=== PATIENT | male | born 1990 | race Caucasian/White ===

== ENCOUNTER 2020-05-03 10:35 | Outpatient (REF) | payer MEDICAID, SELFPAY ==
[2020-05-03 11:49] LABS: MANUAL DIFF FLAG NO
[2020-05-03 11:50] LABS: Basophils Percent Auto 0.3 % (0-2); Eosinophils Absolute Auto 0.1 X10*3/uL (0.0-0.4); Eosinophils Percent Auto 1.2 % (0-4); Hemoglobin 16.4 g/dl (14.0-18.0); Imm Gran Abs Auto 0.03 X10*3/uL (0.00-0.03); Imm Gran Pct Auto 0.4 % (0.0-0.4); Lymphocytes Absolute Auto 2.3 X10*3/uL (1.2-4.9); Lymphocytes Percent Auto 31.5 % (20-40); Mean Corpuscular HGB Conc 34.9 g/dl (31.0-36.0); Mean Corpuscular Hemoglobin 29.5 pg (27.0-33.0); Mean Corpuscular Volume 84.5 fL (80-98); Mean Platelet Volume 9.6 fL (9.4-12.4); Monocytes Absolute Auto 0.6 X10*3/uL (0.1-1.2); Monocytes Percent Auto 8.5 % (2-11); Neutrophils Absolute Auto 4.2 X10*3/uL (2.0-8.3); Neutrophils Percent Auto 58.1 % (45-73); Platelet Count 224 X10*3/uL (160-400); Red Blood Count 5.56 X10*6/uL (4.60-5.80); Red Cell Distribution Width 11.9 % (11.0-16.0); White Blood Count 7.3 X10*3/uL (4.8-10.8)
== END 2020-05-03 10:36 | disposition home or self-care (01) ==
LOC: HO.LAB 10:35
PROVIDERS: PCP Internal Medicine; Visit Provider Internal Medicine Pulmonary Disease
DX: J45.50 Severe persistent asthma, uncomplicated (principal)
CPT/HCPCS: 36415; 82785; 85025; 86003; 99202

== ENCOUNTER → 2020-05-20 10:30 | Outpatient (BNVA) | payer MEDICAID, SELFPAY | PROVIDERS: PCP Internal Medicine; Visit Provider Internal Medicine Pulmonary Disease | DX: J45.50 Severe persistent asthma, uncomplicated (principal); Z91.09 Other allergy status, other than to drugs and biological substances | CPT/HCPCS: 99212 ==

== ENCOUNTER 2020-06-07 19:59 | Emergency (ER) | payer MEDICAID, SELFPAY ==
[2020-06-07 21:37] VITALS: BP 150/94; PULSE 77; RESP 16; TEMP 36.9; O2SAT 99; BMI 24.0
--- NOTE | 2020-06-07 22:16 | ECG_ITS ---
Test Reason : BASELINE Blood Pressure : / mmHG Vent. Rate : 075 BPM Atrial Rate : 075 BPM P-R Int : 140 ms QRS Dur : 082 ms QT Int : 384 ms P-R-T Axes : 075 059 068 degrees QTc Int : 428 ms Sinus rhythm with Premature atrial complexes ST elevation, consider early repolarization, pericarditis, or injury Abnormal ECG No previous ECGs available Referred By: Shawanda Stoddard Electronically Signed By:GEE ORTIZ MD
[2020-06-07 22:29] VITALS: BP 150/93; PULSE 72; RESP 16; TEMP 36.8; O2SAT 98
[2020-06-07 22:40] LABS: Basophils Percent Auto 0.3 % (0-2); Eosinophils Absolute Auto 0.2 X10*3/uL (0.0-0.4); Eosinophils Percent Auto 1.8 % (0-4); Hematocrit 46.3 % (42-52); Hemoglobin 16.1 g/dl (14.0-18.0); Imm Gran Abs Auto 0.02 X10*3/uL (0.00-0.03); Imm Gran Pct Auto 0.2 % (0.0-0.4); Lymphocytes Absolute Auto 3.6 X10*3/uL (1.2-4.9); Lymphocytes Percent Auto 39.3 % (20-40); MANUAL DIFF FLAG NO; Mean Corpuscular HGB Conc 34.8 g/dl (31.0-36.0); Mean Corpuscular Hemoglobin 29.1 pg (27.0-33.0); Mean Corpuscular Volume 83.7 fL (80-98); Mean Platelet Volume 9.3 fL (9.4-12.4); Monocytes Percent Auto 11.4 % (2-11); Neutrophils Absolute Auto 4.3 X10*3/uL (2.0-8.3); Platelet Count 223 X10*3/uL (160-400); Red Blood Count 5.53 X10*6/uL (4.60-5.80); Red Cell Distribution Width 11.9 % (11.0-16.0); White Blood Count 9.1 X10*3/uL (4.8-10.8)
[2020-06-07 22:44] LABS: Appearance Urine CLEAR; Color Urine YELLOW; Glucose Urine UA NEG (NEG); Leukocyte Esterase Urine NEG (NEG); Nitrite Urine NEG (NEG); PH 7.5 (5.0-8.0); Specific Gravity - Urine 1.015 (1.005-1.025); Urine Blood NEG (NEG); Urine Ketones NEG (NEG); Urine Protein TRACE MG/DL (NEG-TRACE)
[2020-06-07 23:11] LABS: Ethanol < 10 mg/dL
[2020-06-07 23:13] LABS: Amphetamine Screen Urine Not Detected (Not Detect); Barbiturates, Urine Not Detected (Not Detect); Benzodiazepines Screen Urine Not Detected (Not Detect); Cannabinoid Screen Urine Not Detected (Not Detect); Cocaine Screen Urine Not Detected (Not Detect); Opiate Screen Urine Not Detected (Not Detect); Phencyclidine Screen Urine Not Detected (Not Detect)
[2020-06-07 23:15] LABS: Alanine Aminotransferase 27 U/L (0-40); Albumin Level 4.3 g/dL (3.5-5.0); Alkaline Phosphatase 66 U/L (39-117); Anion Gap 11 (12-20); Aspartate Amino Transferase 20 U/L (5-37); Bilirubin Total 0.9 mg/dL (0.0-1.0); Blood Urea Nitrogen 19 mg/dL (9-16); Calcium 8.6 mg/dL (8.4-10.2); Carbon Dioxide 25 mmol/L (22-29); Chloride 106 mmol/L (96-108); Creatinine Clr Calc Pharmacy 101.6; Estimated Glomerular Filt Rate > 60; Glucose Random 83 mg/dL (60-115); Lipase 18 U/L (8-78); Potassium 3.9 mmol/L (3.3-5.1); Sodium 138 mmol/L (135-145)
--- NOTE | 2020-06-07 23:15 | ED.ABDPAIN ---
HPI - Abdominal Pain General Chief Complaint: General Medical Stated Complaint: nausea Time Seen by Provider: 06/07/20 22:15 Source: patient Mode of arrival: ambulatory History of Present Illness HPI narrative: This is a 30-year-old male with history of asthma and comes in with 1 week diffuse abdominal discomfort associated with nausea and intermittent episodes of nonbloody diarrhea but otherwise denies fevers, chills, urinary pain/burning/frequency. He states that his last bowel was prior to arrival and was diarrheal nature. He denies any past surgical history in the abdomen. Related Data Home Medications Medication Instructions Recorded Confirmed albuterol sulfate 90 mcg/actuation 2 inh INHALATION QID 05/03/20 breath activated powder inhaler escitalopram oxalate 20 mg tablet 20 mg PO DAILY 05/03/20 fluticasone propionate 220 2 puff INHALATION BID 05/03/20 mcg/actuation HFA aerosol inhaler ibuprofen 600 mg tablet 600 mg PO QID 05/03/20 lorazepam 0.5 mg tablet 0.5 mg PO DAILY PRN 05/03/20 ondansetron HCl 4 mg tablet 4 mg PO Q6H 05/03/20 zolpidem 10 mg tablet 10 mg PO BEDTIME PRN 05/03/20 Previous Rx's Medication Instructions Recorded azithromycin 250 mg tablet See Rx Instructions PO .COMPLEX #6 05/20/20 tab fluticasone 250 mcg-salmeterol 50 1 inh INHALATION BID 30 Days #1 ea 05/20/20 mcg/dose blistr powdr for inhalation ondansetron HCl [Zofran] 4 mg PO Q8H PRN #6 tab 06/08/20 Allergies Allergy/AdvReac Type Severity Reaction Status Date / Time peanut [PEANUT] Allergy Severe ANAPHYLAXIS Verified 05/20/20 10:33 Review of Systems Review of Systems Pertinent positives and negatives as stated in HPI 10 point review systems is otherwise negative. Physical Exam Vital Signs: Vital Signs: Last Vital Signs Temp 98.2 F 06/07/20 22:29 Pulse 76 06/07/20 23:30 Resp 16 06/07/20 23:30 BP 149/95 H 06/07/20 23:30 Pulse Ox 95 06/07/20 23:30 Body Mass Index 24.0 VITAL SIGNS: Reviewed. GENERAL: Well developed, well nourished, in no acute distress. NOSE: Nares patent bilateral OROPHARYNX: no oral lesions noted, posterior pharynx clear NECK: Supple, no adenopathy LUNGS: Normal breath sounds. SpO2<98> CARDIOVASCULAR: Regular rate and rhythm without noted murmurs ABDOMEN: Soft, tenderness primarily over the suprapubic, non-distended with bowel sounds. NEUROLOGIC: Alert and oriented x 4. Course Course Course Narrative: This is a 30-year-old male with history and clinical presentation suggestive possible UTI constipation and less likely appendicitis or diverticulitis. Review of all investigations is negative for any acute findings to suggest intra-abdominal pathologies for patient's symptoms and will be presumptively treated as gastroenteritis. Patient was informed of all results and findings and instructed follow-up with his primary care provider. MDM - Abdominal Pain Lab Data Result diagrams: 06/07/20 22:34 06/07/20 22:34 Labs: Lab Results 06/07/20 06/07/20 06/07/20 Range/Units 22:34 22:34 22:34 WBC 9.1 (4.8-10.8) X10*3/uL RBC 5.53 (4.60-5.80) X10*6/uL Hgb 16.1 (14.0-18.0) g/dl Hct 46.3 (42-52) % MCV 83.7 (80-98) fL MCH 29.1 (27.0-33.0) pg MCHC 34.8 (31.0-36.0) g/dl RDW 11.9 (11.0-16.0) % Plt Count 223 (160-400) X10*3/uL MPV 9.3 L (9.4-12.4) fL Immature Gran % (Auto) 0.2 (0.0-0.4) % Neut % (Auto) 47.0 (45-73) % Lymph % (Auto) 39.3 (20-40) % Dougherty % (Auto) 11.4 H (2-11) % Eos % (Auto) 1.8 (0-4) % Baso % (Auto) 0.3 (0-2) % Lymph # (Auto) 3.6 (1.2-4.9) X10*3/uL Dougherty # (Auto) 1.0 (0.1-1.2) X10*3/uL Eos # (Auto) 0.2 (0.0-0.4) X10*3/uL Baso # (Auto) 0.0 (0.0-0.2) X10*3/uL Abs Immat Gran (auto) 0.02 (0.00-0.03) X10*3/uL Absolute Neuts (auto) 4.3 (2.0-8.3) X10*3/uL Absolute Nucleated RBC 0.000 (0.0-0.012) X10*3/uL Nucleated RBC % (auto) 0.0 (0.0-0.2) /100WBC Sodium 138 (135-145) mmol/L Potassium 3.9 (3.3-5.1) mmol/L Chloride 106 (96-108) mmol/L Carbon Dioxide 25 (22-29) mmol/L Anion Gap 11 L (12-20) BUN 19 H (9-16) mg/dL Creatinine 0.89 (0.5-1.4) mg/dL Estim Creat Clear Calc 101.6 Estimated GFR > 60 Random Glucose 83 (60-115) mg/dL Calcium 8.6 (8.4-10.2) mg/dL Total Bilirubin 0.9 (0.0-1.0) mg/dL AST 20 (5-37) U/L ALT 27 (0-40) U/L Alkaline Phosphatase 66 (39-117) U/L Total Protein 7.0 (6.5-8.0) g/dL Albumin 4.3 (3.5-5.0) g/dL Lipase 18 (8-78) U/L Urine Color Urine Appearance Urine pH (5.0-8.0) Ur Specific [place] (1.005-1.025) Urine Protein (NEG-TRACE) MG/DL Urine Glucose (UA) (NEG) MG/DL Urine Ketones (NEG) MG/DL Urine Blood (NEG) Urine Nitrite (NEG) Ur Leukocyte Esterase (NEG) Urine Opiates Screen (Not Detect) Ur Barbiturates Screen (Not Detect) Ur Phencyclidine Scrn (Not Detect) Ur Amphetamines Screen (Not Detect) U Benzodiazepines Scrn (Not Detect) Urine Cocaine Screen (Not Detect) U Marijuana (THC) Screen (Not Detect) Ethyl Alcohol < 10 mg/dL 06/07/20 06/07/20 Range/Units 22:38 22:38 WBC (4.8-10.8) X10*3/uL RBC (4.60-5.80) X10*6/uL Hgb (14.0-18.0) g/dl Hct (42-52) % MCV (80-98) fL MCH (27.0-33.0) pg MCHC (31.0-36.0) g/dl RDW (11.0-16.0) % Plt Count (160-400) X10*3/uL MPV (9.4-12.4) fL Immature Gran % (Auto) (0.0-0.4) % Neut % (Auto) (45-73) % Lymph % (Auto) (20-40) % Dougherty % (Auto) (2-11) % Eos % (Auto) (0-4) % Baso % (Auto) (0-2) % Lymph # (Auto) (1.2-4.9) X10*3/uL Dougherty # (Auto) (0.1-1.2) X10*3/uL Eos # (Auto) (0.0-0.4) X10*3/uL Baso # (Auto) (0.0-0.2) X10*3/uL Abs Immat Gran (auto) (0.00-0.03) X10*3/uL Absolute Neuts (auto) (2.0-8.3) X10*3/uL Absolute Nucleated RBC (0.0-0.012) X10*3/uL Nucleated RBC % (auto) (0.0-0.2) /100WBC Sodium (135-145) mmol/L Potassium (3.3-5.1) mmol/L Chloride (96-108) mmol/L Carbon Dioxide (22-29) mmol/L Anion Gap (12-20) BUN (9-16) mg/dL Creatinine (0.5-1.4) mg/dL Estim Creat Clear Calc Estimated GFR Random Glucose (60-115) mg/dL Calcium (8.4-10.2) mg/dL Total Bilirubin (0.0-1.0) mg/dL AST (5-37) U/L ALT (0-40) U/L Alkaline Phosphatase (39-117) U/L Total Protein (6.5-8.0) g/dL Albumin (3.5-5.0) g/dL Lipase (8-78) U/L Urine Color YELLOW Urine Appearance CLEAR Urine pH 7.5 (5.0-8.0) Ur Specific [place] 1.015 (1.005-1.025) Urine Protein TRACE (NEG-TRACE) MG/DL Urine Glucose (UA) NEG (NEG) MG/DL Urine Ketones NEG (NEG) MG/DL Urine Blood NEG (NEG) Urine Nitrite NEG (NEG) Ur Leukocyte Esterase NEG (NEG) Urine Opiates Screen Not Detected (Not Detect) Ur Barbiturates Screen Not Detected (Not Detect) Ur Phencyclidine Scrn Not Detected (Not Detect) Ur Amphetamines Screen Not Detected (Not Detect) U Benzodiazepines Scrn Not Detected (Not Detect) Urine Cocaine Screen Not Detected (Not Detect) U Marijuana (THC) Screen Not Detected (Not Detect) Ethyl Alcohol mg/dL ECG Data Attestation: I personally reviewed and interpreted this ECG as follows: Prior ECG tracings: not available for review Interpretation: Normal sinus rhythm, HR-75, no evidence of acute ischemia, [place]/QRS/QTC are within normal limits. Noted ST changes attributable to early repolarization. Discharge Plan Discharge Clinical Impression: Gastroenteritis Patient Disposition: Home, Self-Care Instructions: Gastroenteritis (ED) Additional Instructions: Please not hesitate to return to the emergency department should you experience any acute worsening of your symptoms. Prescriptions: New ondansetron HCl [Zofran] 4 mg tablet 4 mg PO Q8H PRN (Reason: nausea and vomiting) Qty: 6 RF: 0 No Action fluticasone propion-salmeterol [Wixela Inhub] 250-50 mcg/dose blister with device 1 inh inhalation BID 30 Days Qty: 1 RF: 6 azithromycin 250 mg tablet See Rx Instructions PO .COMPLEX Qty: 6 RF: 0 Referrals: Sandhya Darby MD [Primary Care Provider] - 2 days (Re-evaluation after seen here in the emergency department for 1 week of abdominal discomfort and workup was negative, presumptive gastroenteritis.) [facility] Past Medical History Source: nursing notes reviewed Medical History Anxiety Asthma Cholecystectomy planned Depression Surgical History Pierce teeth extracted Social History Social History Smoking Status: Never smoker Advance Directives: No Advance Directives Information Provided: Yes
--- NOTE | 2020-06-07 23:22 | CT_ITS ---
EXAMINATION: CT ABDOMEN AND PELVIS WITH CONTRAST CLINICAL INFORMATION: Abdominal pain COMPARISON: CT scan abdomen pelvis 01/01/2018 TECHNIQUE: Multidetector volumetric images were obtained from the superior aspect of the liver through the pubic symphysis following administration 85 mL of Omnipaque 350 intravenous contrast. Sagittal and coronal reformatted images were obtained on the technologist's workstation. Oral contrast: No This CT examination was performed using dose optimization techniques as appropriate, variously including the following: *Automated exposure control *Adjustment of mA and/or kV according to patient size (this includes techniques or standardized protocols for targeted exams where dose is matched to indication/reason for exam; i.e. extremities or head) *Use of iterative reconstruction technique DLP: 389 mGy-cm FINDINGS: LUNG BASES: The visualized lung bases are unremarkable. LIVER, GALLBLADDER, AND BILIARY TREE: The liver is normal in size, shape, and attenuation. No focal hepatic lesion or biliary ductal dilatation is present. Status post cholecystectomy PANCREAS: Unremarkable. SPLEEN: Unremarkable. ADRENAL GLANDS: Unremarkable. KIDNEYS AND URETERS: The kidneys are normal in size, shape, and attenuation. No hydronephrosis, hydroureter, or calculi seen. No perinephric stranding. BLADDER: Unremarkable. GASTROINTESTINAL TRACT: The small and large bowel are unremarkable. The appendix is unremarkable. ABDOMINAL WALL: No significant hernia is appreciated. LYMPH NODES: Normal. VASCULAR: There are small varices in the pelvis adjacent to the prostate. Normal enhancement of the abdominal and pelvic vasculature. PELVIC VISCERA: Unremarkable. OSSEOUS STRUCTURES: Unremarkable. CT/CT abdomen pelvis w con IMPRESSION: No acute abnormality the abdomen or the pelvis.
[2020-06-07] MEDS: Magnesium Hydrox/Alum Hydrox 30 ML ORAL.SUSP PO (23:28)
[2020-06-07] MEDS: Lidocaine HCl Viscous 2 % 15 ML SOLUTION 10 ML MUCOUS MEM (23:28)
[2020-06-07 23:30] VITALS: BP 149/95; PULSE 76; RESP 16; O2SAT 95
[2020-06-07] MEDS: iohexoL 350 MG/ML 100 ML INFUS..BTL 85 ML IV (23:57)
[2020-06-08 00:41] VITALS: BP 145/103; PULSE 78; RESP 16; O2SAT 97
== END 2020-06-08 01:00 | disposition home or self-care (01) ==
PROVIDERS: Emergency Provider Student in an Organized Health Care Education/Training Program; PCP Internal Medicine
DX: K52.9 Noninfective gastroenteritis and colitis, unspecified (principal); J45.909 Unspecified asthma, uncomplicated; Z79.899 Other long term (current) drug therapy
CPT/HCPCS: 36415; 74177; 80053; 80307; 80320; 81003; 83690; 85025; 93005; 99283; 99284; Q9967

== ENCOUNTER 2020-06-24 14:39 | Outpatient (REF) | payer MEDICAID, SELFPAY ==
--- NOTE | ~2020-06-24 | CT_ITS ---
EXAMINATION: CT ABDOMEN WITH CONTRAST CLINICAL INFORMATION: Weight gain. Upper abdominal pain. Rule out umbilical hernia. COMPARISON: 06/07/2020 TECHNIQUE: Contiguous axial thin section helical images of the abdomen were performed following the administration of oral contrast and 85 mL of Omnipaque 350 intravenous contrast. The data set was reformatted in the coronal and sagittal planes and reviewed on an independent workstation. This CT examination was performed using dose optimization techniques as appropriate, variously including the following: *Automated exposure control *Adjustment of mA and/or kV according to patient size (this includes techniques or standardized protocols for targeted exams where dose is matched to indication/reason for exam; i.e. extremities or head) *Use of iterative reconstruction technique DLP: 175 mGy-cm FINDINGS: LUNG BASES: Lung bases are clear. LIVER, GALLBLADDER, AND BILIARY TREE: Liver is diffusely hypoattenuating. There may be diffuse hepatic steatosis. No concerning focal liver lesion seen. Hepatic and portal veins enhance normally. Status post cholecystectomy. No biliary ductal dilatation. PANCREAS: Normal. SPLEEN: Normal. ADRENAL GLANDS AND KIDNEYS: No adrenal mass. Symmetric bilateral renal enhancement. No hydronephrosis or mass. BOWEL LOOPS: Stomach is distended with oral contrast. Small bowel nondilated. Normal appendix. Scattered colonic diverticulosis. No evidence of colitis or diverticulitis. LYMPH NODES: No lymphadenopathy. VASCULAR: Normal caliber abdominal aorta. BONES: No acute or suspicious osseous abnormality. CT/CT abdomen w con IMPRESSION: No acute CT findings. No hernia seen. Status post cholecystectomy.
[2020-06-24] MEDS: Barium Sulfate Oral (Mocha) 450 ML ORAL.SUSP PO (15:51)
[2020-06-24] MEDS: iohexoL 350 MG/ML 100 ML INFUS..BTL IV (15:52)
== END 2020-06-24 14:40 | disposition home or self-care (01) ==
LOC: HO.CT 14:39
PROVIDERS: Visit Provider Internal Medicine
DX: R19.8 Other specified symptoms and signs involving the digestive system and abdomen (principal); R63.5 Abnormal weight gain
CPT/HCPCS: 74160; Q9967

== ENCOUNTER 2020-08-09 16:45 | Emergency (ER) | payer MEDICAID, SELFPAY ==
--- NOTE | ~2020-08-09 | XR_ITS ---
EXAMINATION: XR CHEST CLINICAL INFORMATION: Cough COMPARISON: 02/12/2019 TECHNIQUE: Frontal view of the chest was obtained. FINDINGS: No significant abnormality is noted involving the heart, lungs, mediastinum, bony thorax or soft tissues. XR/XR chest 1V IMPRESSION: Unremarkable examination.
--- NOTE | ~2020-08-09 | CT_ITS ---
EXAMINATION: CT ABDOMEN AND PELVIS WITH CONTRAST CLINICAL INFORMATION: 30-year-old male with right lower quadrant abdominal pain. Nausea, vomiting and diarrhea. COMPARISON: CT abdomen pelvis 06/24/2020 TECHNIQUE: Multidetector volumetric images were obtained from the superior aspect of the liver through the pubic symphysis following administration 85 mL of Omnipaque 350 intravenous contrast. Sagittal and coronal reformatted images were obtained on the technologist's workstation. This CT examination was performed using dose optimization techniques as appropriate, variously including the following: *Automated exposure control *Adjustment of mA and/or kV according to patient size (this includes techniques or standardized protocols for targeted exams where dose is matched to indication/reason for exam; i.e. extremities or head) *Use of iterative reconstruction technique DLP: 506 mGy-cm FINDINGS: Visualized lung bases are well aerated. The liver demonstrates normal size, contour and attenuation. The gallbladder is surgically absent. The pancreas is normal in appearance. The spleen is normal in size. There is a 7 mm hypodensity within the superior aspect of the spleen which is too small to accurately characterize but stable. The adrenal glands are unremarkable. Symmetrically enhancing kidneys. No hydronephrosis bilaterally. The stomach is decompressed. Normal caliber loops of small and large bowel. Normal appendix. Nonaneurysmal abdominal aorta. No retroperitoneal lymphadenopathy. The bladder is relatively decompressed but unremarkable. The prostate gland is not enlarged. No gross free pelvic fluid. No inguinal lymphadenopathy. No acute osseous abnormality. CT/CT abdomen pelvis w con IMPRESSION: Stable examination demonstrating no CT evidence for acute abnormality within the abdomen or pelvis.
[2020-08-09 16:50] VITALS: BP 162/83; PULSE 107; RESP 16; TEMP 37.1; O2SAT 97; BMI 23.6
--- NOTE | 2020-08-09 18:03 | PC.NURSE ---
Pt swabbed for COVIS/FLU/RSV and given warm blanket
--- NOTE | 2020-08-09 18:22 | ECG_ITS ---
Test Reason : CHEST PAIN Blood Pressure : / mmHG Vent. Rate : 117 BPM Atrial Rate : 117 BPM P-R Int : 126 ms QRS Dur : 084 ms QT Int : 302 ms P-R-T Axes : 054 037 069 degrees QTc Int : 421 ms Sinus tachycardia Nonspecific T wave abnormality Abnormal ECG When compared with ECG of 07-JUN-2020 22:26, Premature atrial complexes are no longer Present Vent. rate has increased BY [address] no longer elevated in Lateral leads Nonspecific T wave abnormality now evident in Lateral leads Referred By: Caridad Alvarez Electronically Signed By:GEE ORTIZ MD
[2020-08-09 18:53] LABS: MANUAL DIFF FLAG NO
[2020-08-09 18:56] LABS: Influenza A PCR NEGATIVE (Negative); Influenza B PCR NEGATIVE (Negative); Resp Syncy Virus RNA Qual PCR NEGATIVE (Negative); SARS COV2 PCR INHOUSE NEGATIVE (Negative)
[2020-08-09] MEDS: HYDROcodone/Homat 5/1.5/5 ML 5 ML SYRUP PO (18:59)
[2020-08-09] MEDS: Benzonatate 100 MG CAPSULE PO (19:00)
[2020-08-09 19:01] LABS: Basophils Percent Auto 0.3 % (0-2); Eosinophils Absolute Auto 0.1 X10*3/uL (0.0-0.4); Eosinophils Percent Auto 0.7 % (0-4); Hematocrit 48.7 % (42-52); Hemoglobin 16.5 g/dl (14.0-18.0); Imm Gran Abs Auto 0.03 X10*3/uL (0.00-0.03); Imm Gran Pct Auto 0.3 % (0.0-0.4); Lymphocytes Percent Auto 18.4 % (20-40); Mean Corpuscular HGB Conc 33.9 g/dl (31.0-36.0); Mean Corpuscular Hemoglobin 28.9 pg (27.0-33.0); Mean Corpuscular Volume 85.4 fL (80-98); Mean Platelet Volume 9.6 fL (9.4-12.4); Monocytes Absolute Auto 0.8 X10*3/uL (0.1-1.2); Monocytes Percent Auto 7.4 % (2-11); Neutrophils Absolute Auto 7.9 X10*3/uL (2.0-8.3); Neutrophils Percent Auto 72.9 % (45-73); Platelet Count 201 X10*3/uL (160-400); Red Cell Distribution Width 12.3 % (11.0-16.0); White Blood Count 10.9 X10*3/uL (4.8-10.8)
[2020-08-09] MEDS: Albuterol Sulfate 90 MCG 8 GM INHALER 4 PUFF INHALE (19:01)
[2020-08-09] MEDS: Famotidine/PF 20 MG/2 ML VIAL IVPUSH (19:02)
[2020-08-09] MEDS: Ketorolac Tromethamine 15 MG/ML VIAL IVPUSH (19:02)
[2020-08-09] MEDS: 0.9 % Sodium Chloride 1,000 ML 999 ML IVCONT ×2 (19:12→22:15)
--- NOTE | 2020-08-09 19:13 | ED_ITS ---
HPI - Nausea/Vomiting/Diarrhea General Chief complaint: Nausea/Vomiting/Diarrhea Stated complaint: n/v/d, fever, SOB Time Seen by Provider: 08/09/20 17:41 Source: patient Mode of arrival: ambulatory History of Present Illness HPI Narrative: 30-year-old male with a past medical history of anxiety, asthma, depression, presenting to the ED complaining dry cough, nausea, vomiting, diarrhea, headache, and abdominal pain x2 days. Reports chest tightness, chills, fatigue and myalgias. Works at [employer], admits is vaccinated for COVID-19. Denies fever, constipation, dysuria/hematuria, recent travel, known exposure COVID-19, SOB MD elicited complaint: nausea, vomiting, diarrhea and abdominal pain Related Data Home Medications Medication Instructions Recorded Confirmed albuterol sulfate 90 mcg/actuation 2 inh INHALATION QID 05/03/20 breath activated powder inhaler escitalopram oxalate 20 mg tablet 20 mg PO DAILY 05/03/20 fluticasone propionate 220 2 puff INHALATION BID 05/03/20 mcg/actuation HFA aerosol inhaler ibuprofen 600 mg tablet 600 mg PO QID 05/03/20 lorazepam 0.5 mg tablet 0.5 mg PO DAILY PRN 05/03/20 ondansetron HCl 4 mg tablet 4 mg PO Q6H 05/03/20 zolpidem 10 mg tablet 10 mg PO BEDTIME PRN 05/03/20 Previous Rx's Medication Instructions Recorded azithromycin 250 mg tablet See Rx Instructions PO .COMPLEX #6 05/20/20 tab fluticasone 250 mcg-salmeterol 50 1 inh INHALATION BID 30 Days #1 ea 05/20/20 mcg/dose blistr powdr for inhalation ondansetron HCl [Zofran] 4 mg PO Q8H PRN #6 tab 06/08/20 albuterol sulfate 2 puff INHALATION Q4-6H PRN #6.7 g 08/09/20 benzonatate [Tessalon Perles] 100 mg PO TID PRN #14 cap 08/09/20 dicyclomine 20 mg PO QID #14 tab 08/09/20 ondansetron HCl [Zofran] 4 mg PO Q8H PRN #10 tab 08/09/20 Allergies Allergy/AdvReac Type Severity Reaction Status Date / Time peanut [PEANUT] Allergy Severe ANAPHYLAXIS Verified 05/20/20 10:33 adhesive tape Allergy Rash Verified 08/09/20 16:49 Review of Systems Review of Systems: Constitutional: No Fever, + Chills, + Fatigue, No Malaise Cardiovascular: No Chest Pain, No SOB, No Dyspnea on Exertion Respiratory: + Cough, No Dyspnea Gastrointestinal: + Nausea, + Vomiting, + Diarrhea, No Constipation, + Abdominal pain, No Hematochezia, No Melena Genitourinary: No Dysuria, No Hematuria, No Flank Pain Musculoskeletal: No joint pain, + Myalgias Skin: No Skin Lesions, No rash Neuro: No Weakness, No Numbness, + Headache Yes all other systems are reviewed and are negative [facility] Past Medical History Attestation statement: The following information was validated with the patient. Medical History Anxiety Asthma Cholecystectomy planned Depression Surgical History [place] teeth extracted Social History Social History Smoking Status: Never smoker Advance Directives: No Advance Directives Information Provided: No Physical Exam Vital Signs: Vital Signs: Last Vital Signs Temp 100.4 F 08/09/20 19:22 Pulse 126 H 08/09/20 19:22 Resp 22 H 08/09/20 19:22 BP 152/80 H 08/09/20 19:22 Pulse Ox 95 08/09/20 19:22 Body Mass Index 23.6 Const: General: cooperative and healthy appearing Orientation/consciousness: patient oriented x3 Limitations: no limitations HENMT: Head: Yes normal to inspection Ears: hearing grossly normal bilaterally General nose exam: Normal external nose present Face and sinus: Yes normal facial exam Eyes: General: appearance normal, both eyes and all related structures EOM: EOMs intact bilaterally Neck: Neck: Yes normal visual inspection Resp: Effort & Inspection: normal respiratory effort Auscultation: clear to auscultation bilaterally, no rales, no rhonchi and no wheezes Cardio: Rate: regular rate Heart sounds: S1 normal heart sound present and S2 normal heart sound present GI: Inspection: Yes normal to inspection Palpation (GI): Soft to palpation, Tenderness to palpation present (GI) in the RLQ, periumbilically and with rebound tenderness, no guarding and not rigid Skin: Rashes: no rashes Wounds: no wounds Neuro: General: patient oriented x3 Gait exam (Neuro): Normal gait present Extrem: General: Yes normal to inspection Course Course Course Narrative: -repeat vitals patient is febrile, tachycardic and tachypneic likely from fever, elevated lactic likely from dehydration > empiric IV Zosyn ordered -mild leukocytosis at 10.9, troponin negative, labs otherwise unremarkable, UA negative -COVID-19/influenza/RSV negative CT abdomen pelvis w con IMPRESSION: Stable examination demonstrating no CT evidence for acute abnormality within the abdomen or pelvis. XR chest 1V IMPRESSION: Unremarkable examination >> low concern for severe sepsis. No evidence of infection. Will repeat lactic after IVF and vital signs. -2099--ED care transferred to LE[facility] Huizar pending repeat lactic, repeat vital signs, p.o. challenge and re-evaluation MDM - Nausea/Vomiting/Diarrhea MDM Narrative Medical decision making narrative: 30-year-old male with a past medical history of anxiety, asthma, depression, presenting to the ED complaining dry cough, nausea, vomiting, diarrhea, headache, and abdominal pain x2 days. Reports chest tightness, chills, fatigue and myalgias. On exam mildly tachycardic, abdomen soft with periumbilical/RLQ ttp, lungs CTA. Concern for apppendicitis vs gastroenteritis/food poisoning vs viral syndrome/COVID-19. Rule out UTI/diverticulitis. Unlikely ACS/PE Low concern for severe sepsis at this time Plan: EKG, labs, UA, CT AP, IVF/symptomatic treatment, reassess Lab Data Result diagrams: 08/09/20 18:46 08/09/20 18:46 Labs: Lab Results 08/09/20 08/09/20 08/09/20 Range/Units 17:59 18:46 18:46 WBC 10.9 H (4.8-10.8) X10*3/uL RBC 5.70 (4.60-5.80) X10*6/uL Hgb 16.5 (14.0-18.0) g/dl Hct 48.7 (42-52) % MCV 85.4 (80-98) fL MCH 28.9 (27.0-33.0) pg MCHC 33.9 (31.0-36.0) g/dl RDW 12.3 (11.0-16.0) % Plt Count 201 (160-400) X10*3/uL MPV 9.6 (9.4-12.4) fL Immature Gran % (Auto) 0.3 (0.0-0.4) % Neut % (Auto) 72.9 (45-73) % Lymph % (Auto) 18.4 L (20-40) % Miner % (Auto) 7.4 (2-11) % Eos % (Auto) 0.7 (0-4) % Baso % (Auto) 0.3 (0-2) % Lymph # (Auto) 2.0 (1.2-4.9) X10*3/uL Miner # (Auto) 0.8 (0.1-1.2) X10*3/uL Eos # (Auto) 0.1 (0.0-0.4) X10*3/uL Baso # (Auto) 0.0 (0.0-0.2) X10*3/uL Abs Immat Gran (auto) 0.03 (0.00-0.03) X10*3/uL Absolute Neuts (auto) 7.9 (2.0-8.3) X10*3/uL Absolute Nucleated RBC 0.000 (0.0-0.012) X10*3/uL Nucleated RBC % (auto) 0.0 (0.0-0.2) /100WBC Hold Blue Top Sodium 140 (135-145) mmol/L Potassium 3.5 (3.3-5.1) mmol/L Chloride 102 (96-108) mmol/L Carbon Dioxide 28 (22-29) mmol/L Anion Gap 14 (12-20) BUN 13 (9-16) mg/dL Creatinine 0.98 (0.5-1.4) mg/dL Estim Creat Clear Calc 92.2 Estimated GFR > 60 Random Glucose 95 (60-115) mg/dL Lactic Acid (0.5-2.0) mmol/L Calcium 8.8 (8.4-10.2) mg/dL Magnesium 1.9 (1.6-2.6) mg/dL Total Bilirubin 1.2 H (0.0-1.0) mg/dL Direct Bilirubin 0.4 (0.0-0.5) mg/dL AST 20 (5-37) U/L ALT 39 (0-40) U/L Alkaline Phosphatase 78 (39-117) U/L Troponin I High Sens (<3.5-35.0) ng/L Total Protein 7.7 (6.5-8.0) g/dL Albumin 4.6 (3.5-5.0) g/dL Lipase (8-78) U/L Urine Color Urine Appearance Urine pH (5.0-8.0) Ur Specific Gate (1.005-1.025) Urine Protein (NEG-TRACE) MG/DL Urine Glucose (UA) (NEG) MG/DL Urine Ketones (NEG) MG/DL Urine Blood (NEG) Urine Nitrite (NEG) Ur Leukocyte Esterase (NEG) Coronavirus (PCR) NEGATIVE (Negative) Influenza Type A (PCR) NEGATIVE (Negative) Influenza Type B (PCR) NEGATIVE (Negative) RSV RNA Qual (PCR) NEGATIVE (Negative) 08/09/20 08/09/20 08/09/20 Range/Units 18:46 18:46 18:46 WBC (4.8-10.8) X10*3/uL RBC (4.60-5.80) X10*6/uL Hgb (14.0-18.0) g/dl Hct (42-52) % MCV (80-98) fL MCH (27.0-33.0) pg MCHC (31.0-36.0) g/dl RDW (11.0-16.0) % Plt Count (160-400) X10*3/uL MPV (9.4-12.4) fL Immature Gran % (Auto) (0.0-0.4) % Neut % (Auto) (45-73) % Lymph % (Auto) (20-40) % Miner % (Auto) (2-11) % Eos % (Auto) (0-4) % Baso % (Auto) (0-2) % Lymph # (Auto) (1.2-4.9) X10*3/uL Miner # (Auto) (0.1-1.2) X10*3/uL Eos # (Auto) (0.0-0.4) X10*3/uL Baso # (Auto) (0.0-0.2) X10*3/uL Abs Immat Gran (auto) (0.00-0.03) X10*3/uL Absolute Neuts (auto) (2.0-8.3) X10*3/uL Absolute Nucleated RBC (0.0-0.012) X10*3/uL Nucleated RBC % (auto) (0.0-0.2) /100WBC Hold Blue Top SEE NOTE Sodium (135-145) mmol/L Potassium (3.3-5.1) mmol/L Chloride (96-108) mmol/L Carbon Dioxide (22-29) mmol/L Anion Gap (12-20) BUN (9-16) mg/dL Creatinine (0.5-1.4) mg/dL Estim Creat Clear Calc Estimated GFR Random Glucose (60-115) mg/dL Lactic Acid 2.7 H* (0.5-2.0) mmol/L Calcium (8.4-10.2) mg/dL Magnesium (1.6-2.6) mg/dL Total Bilirubin (0.0-1.0) mg/dL Direct Bilirubin (0.0-0.5) mg/dL AST (5-37) U/L ALT (0-40) U/L Alkaline Phosphatase (39-117) U/L Troponin I High Sens 4.2 (<3.5-35.0) ng/L Total Protein (6.5-8.0) g/dL Albumin (3.5-5.0) g/dL Lipase (8-78) U/L Urine Color Urine Appearance Urine pH (5.0-8.0) Ur Specific Gate (1.005-1.025) Urine Protein (NEG-TRACE) MG/DL Urine Glucose (UA) (NEG) MG/DL Urine Ketones (NEG) MG/DL Urine Blood (NEG) Urine Nitrite (NEG) Ur Leukocyte Esterase (NEG) Coronavirus (PCR) (Negative) Influenza Type A (PCR) (Negative) Influenza Type B (PCR) (Negative) RSV RNA Qual (PCR) (Negative) 08/09/20 08/09/20 Range/Units 18:46 19:16 WBC (4.8-10.8) X10*3/uL RBC (4.60-5.80) X10*6/uL Hgb (14.0-18.0) g/dl Hct (42-52) % MCV (80-98) fL MCH (27.0-33.0) pg MCHC (31.0-36.0) g/dl RDW (11.0-16.0) % Plt Count (160-400) X10*3/uL MPV (9.4-12.4) fL Immature Gran % (Auto) (0.0-0.4) % Neut % (Auto) (45-73) % Lymph % (Auto) (20-40) % Miner % (Auto) (2-11) % Eos % (Auto) (0-4) % Baso % (Auto) (0-2) % Lymph # (Auto) (1.2-4.9) X10*3/uL Miner # (Auto) (0.1-1.2) X10*3/uL Eos # (Auto) (0.0-0.4) X10*3/uL Baso # (Auto) (0.0-0.2) X10*3/uL Abs Immat Gran (auto) (0.00-0.03) X10*3/uL Absolute Neuts (auto) (2.0-8.3) X10*3/uL Absolute Nucleated RBC (0.0-0.012) X10*3/uL Nucleated RBC % (auto) (0.0-0.2) /100WBC Hold Blue Top Sodium (135-145) mmol/L Potassium (3.3-5.1) mmol/L Chloride (96-108) mmol/L Carbon Dioxide (22-29) mmol/L Anion Gap (12-20) BUN (9-16) mg/dL Creatinine (0.5-1.4) mg/dL Estim Creat Clear Calc Estimated GFR Random Glucose (60-115) mg/dL Lactic Acid (0.5-2.0) mmol/L Calcium (8.4-10.2) mg/dL Magnesium (1.6-2.6) mg/dL Total Bilirubin (0.0-1.0) mg/dL Direct Bilirubin (0.0-0.5) mg/dL AST (5-37) U/L ALT (0-40) U/L Alkaline Phosphatase (39-117) U/L Troponin I High Sens (<3.5-35.0) ng/L Total Protein (6.5-8.0) g/dL Albumin (3.5-5.0) g/dL Lipase 16 (8-78) U/L Urine Color YELLOW Urine Appearance CLEAR Urine pH 7.5 (5.0-8.0) Ur Specific Gate 1.020 (1.005-1.025) Urine Protein NEG (NEG-TRACE) MG/DL Urine Glucose (UA) NEG (NEG) MG/DL Urine Ketones NEG (NEG) MG/DL Urine Blood NEG (NEG) Urine Nitrite NEG (NEG) Ur Leukocyte Esterase NEG (NEG) Coronavirus (PCR) (Negative) Influenza Type A (PCR) (Negative) Influenza Type B (PCR) (Negative) RSV RNA Qual (PCR) (Negative) Discharge Plan Discharge Clinical Impression: Abdominal pain, Nausea, vomiting, and diarrhea Instructions: Acute Nausea and Vomiting (ED), Viral Syndrome (ED) Additional Instructions: Your CT scan was unremarkable. You tested negative for COVID-19 Your x-ray was negative Your blood work showed that you are dehydrated Your having fevers, is important to take Tylenol Motrin at home It is very important to follow-up with her primary care doctor, Donato Ribeiro for cough Zofran is for nausea, albuterol inhaler is for wheezing Bentyl will help with stomach discomfort/cramping, take as needed If her symptoms persist or worsen, if constant worsening abdominal pain, na usea/vomiting, cough, fevers unresolved with medications, or are unable to eat or drink return to the ED immediately Prescriptions: New ondansetron HCl [Zofran] 4 mg tablet 4 mg PO Q8H PRN (Reason: nausea and vomiting) Qty: 10 RF: 0 dicyclomine 20 mg tablet 20 mg PO QID Qty: 14 RF: 0 albuterol sulfate 90 mcg/actuation HFA aerosol inhaler 2 puff inhalation Q4-6H PRN (Reason: shortness of breath or wheezing) Qty: 6.7 RF: 0 benzonatate [Tessalon Perles] 100 mg capsule 100 mg PO TID PRN (Reason: cough) Qty: 14 RF: 0 No Action ondansetron HCl [Zofran] 4 mg tablet 4 mg PO Q8H PRN (Reason: nausea and vomiting) Qty: 6 RF: 0 fluticasone propion-salmeterol [Wixela Inhub] 250-50 mcg/dose blister with device 1 inh inhalation BID 30 Days Qty: 1 RF: 6 azithromycin 250 mg tablet See Rx Instructions PO .COMPLEX Qty: 6 RF: 0 Referrals: Sandhya Darby MD [Primary Care Provider] - 2 days
[2020-08-09 19:22] VITALS: BP 152/80; PULSE 126; RESP 22; TEMP 38; O2SAT 95
[2020-08-09 19:22] LABS: Alanine Aminotransferase 39 U/L (0-40); Albumin Level 4.6 g/dL (3.5-5.0); Alkaline Phosphatase 78 U/L (39-117); Anion Gap 14 (12-20); Aspartate Amino Transferase 20 U/L (5-37); Bilirubin Direct 0.4 mg/dL (0.0-0.5); Bilirubin Total 1.2 mg/dL (0.0-1.0); Blood Urea Nitrogen 13 mg/dL (9-16); Calcium 8.8 mg/dL (8.4-10.2); Carbon Dioxide 28 mmol/L (22-29); Chloride 102 mmol/L (96-108); Creatinine Clr Calc Pharmacy 92.2; Estimated Glomerular Filt Rate > 60; Glucose Random 95 mg/dL (60-115); Lactic Acid 2.7 mmol/L (0.5-2.0); Magnesium 1.9 mg/dL (1.6-2.6); Potassium 3.5 mmol/L (3.3-5.1); Sodium 140 mmol/L (135-145); Total Protein 7.7 g/dL (6.5-8.0)
[2020-08-09 19:24] LABS: Lipase 16 U/L (8-78)
[2020-08-09 19:25] LABS: Troponin-I High Sensitivity 4.2 ng/L (<3.5-35.0)
[2020-08-09 19:31] LABS: Glucose Urine UA NEG (NEG); Leukocyte Esterase Urine NEG (NEG); Nitrite Urine NEG (NEG); PH 7.5 (5.0-8.0); Urine Blood NEG (NEG); Urine Ketones NEG (NEG); Urine Protein NEG (NEG-TRACE)
[2020-08-09 19:36] LABS: Appearance Urine CLEAR; Color Urine YELLOW
[2020-08-09] MEDS: iohexoL 350 MG/ML 100 ML INFUS..BTL IV (20:05)
[2020-08-09 20:51] LABS: Reflex Lactate? Lactic Acid Added
[2020-08-09] MEDS: Acetaminophen 325 MG TABLET 650 MG PO (22:15)
[2020-08-09] MEDS: Piperacillin Sodium/Tazobactam 3.375 GM in 0.9 % Sodium Chloride 50 ML IV (22:15)
[2020-08-09 22:23] VITALS: BP 128/67; PULSE 115; RESP 17; O2SAT 95
[2020-08-09 22:35] LABS: Lactic Acid 2.2 mmol/L (0.5-2.0)
[2020-08-09 23:25] LABS: Reflex Lactate? Lactic Acid Added
[2020-08-10] MEDS: 0.9 % Sodium Chloride 1,000 ML 999 ML IV (00:01)
[2020-08-10 00:29] LABS: Lactic Acid 1.4 mmol/L (0.5-2.0)
[2020-08-10 02:00] VITALS: BP 124/61; PULSE 100; RESP 16; TEMP 36.9; O2SAT 95
== END 2020-08-10 02:54 | disposition home or self-care (01) ==
PROVIDERS: Physician Assistant; Emergency Provider Internal Medicine; PCP Internal Medicine
DX: R50.9 Fever, unspecified (principal); R05 Cough; R51.9 Headache, unspecified; R11.2 Nausea with vomiting, unspecified; R19.7 Diarrhea, unspecified; Z20.822 Contact with and (suspected) exposure to COVID-19; Z79.899 Other long term (current) drug therapy
CPT/HCPCS: 0241U; 36415; 71045; 74177; 80048; 80076; 81003; 83605; 83690; 83735; 84484; 85025; 87040; 93005; 96361; 96365; 96367; 96375; 99284; J1885; J2543; Q9967

== ENCOUNTER → 2020-08-30 10:29 | Outpatient (BNVA) | payer MEDICAID, SELFPAY | PROVIDERS: PCP Internal Medicine; Visit Provider Internal Medicine Pulmonary Disease | DX: J45.50 Severe persistent asthma, uncomplicated (principal); Z91.09 Other allergy status, other than to drugs and biological substances | CPT/HCPCS: 99212 ==

== ENCOUNTER 2020-09-22 08:12 | Outpatient (REF) | payer MEDICAID, SELFPAY | END 2020-09-22 08:13 | disposition home or self-care (01) | LOC: HO.MDS 08:12 | PROVIDERS: Visit Provider Internal Medicine Pulmonary Disease | DX: J45.50 Severe persistent asthma, uncomplicated (principal) | CPT/HCPCS: 96372; J2357 ==

== ENCOUNTER 2020-10-20 07:44 | Outpatient (REF) | payer MEDICAID, SELFPAY | END 2020-10-20 07:45 | disposition home or self-care (01) | LOC: HO.MDS 07:44 | PROVIDERS: PCP Internal Medicine; Visit Provider Internal Medicine Pulmonary Disease | DX: J45.50 Severe persistent asthma, uncomplicated (principal) | CPT/HCPCS: 96372; J2357 ==

== ENCOUNTER 2020-11-17 07:45 | Outpatient (REF) | payer MEDICAID, SELFPAY | END 2020-11-17 07:46 | disposition home or self-care (01) | LOC: HO.MDS 07:45 | PROVIDERS: PCP Internal Medicine; Visit Provider Internal Medicine Pulmonary Disease | DX: J45.50 Severe persistent asthma, uncomplicated (principal) | CPT/HCPCS: 96372; J2357 ==

== ENCOUNTER → 2020-11-28 16:22 | Outpatient (BNVA) | payer MEDICAID, SELFPAY | PROVIDERS: PCP Internal Medicine; Visit Provider Internal Medicine Pulmonary Disease | DX: J45.50 Severe persistent asthma, uncomplicated (principal); F41.8 Other specified anxiety disorders; Z88.8 Allergy status to other drugs, medicaments and biological substances; Z91.010 Allergy to peanuts | CPT/HCPCS: 99212 ==

== ENCOUNTER 2020-12-15 08:53 | Outpatient (REF) | payer MEDICAID, SELFPAY | END 2020-12-15 08:54 | disposition home or self-care (01) | LOC: HO.MDS 08:53 | PROVIDERS: PCP Internal Medicine; Visit Provider Internal Medicine Pulmonary Disease | DX: J45.50 Severe persistent asthma, uncomplicated (principal) | CPT/HCPCS: 96372 ==

== ENCOUNTER 2021-01-12 07:55 | Outpatient (REF) | payer MEDICAID, SELFPAY | END 2021-01-12 07:56 | disposition home or self-care (01) | LOC: HO.MDS 07:55 | PROVIDERS: PCP Internal Medicine; Visit Provider Internal Medicine Pulmonary Disease | DX: J45.50 Severe persistent asthma, uncomplicated (principal) | CPT/HCPCS: 96372; J2357 ==

== ENCOUNTER 2021-02-08 21:31 | Emergency (ER) | payer MEDICAID, SELFPAY ==
[2021-02-08 21:41] VITALS: BP 143/101; PULSE 103; RESP 16; TEMP 37.6; O2SAT 97; BMI 24.5
[2021-02-08 22:05] LABS: COVID-19 Test Negative (Negative)
[2021-02-08 23:03] LABS: MANUAL DIFF FLAG NO
[2021-02-08 23:07] LABS: Basophils Percent Auto 0.2 % (0-2); Eosinophils Percent Auto 0.2 % (0-4); Hematocrit 47.4 % (42-52); Hemoglobin 17.3 g/dl (14.0-18.0); Imm Gran Abs Auto 0.04 X10*3/uL (0.00-0.03); Imm Gran Pct Auto 0.3 % (0.0-0.4); Lymphocytes Absolute Auto 3.9 X10*3/uL (1.2-4.9); Lymphocytes Percent Auto 30.6 % (20-40); Mean Corpuscular HGB Conc 36.5 g/dl (31.0-36.0); Mean Corpuscular Hemoglobin 29.5 pg (27.0-33.0); Mean Corpuscular Volume 80.9 fL (80-98); Mean Platelet Volume 9.3 fL (9.4-12.4); Monocytes Absolute Auto 1.5 X10*3/uL (0.1-1.2); Monocytes Percent Auto 11.9 % (2-11); Neutrophils Absolute Auto 7.1 X10*3/uL (2.0-8.3); Neutrophils Percent Auto 56.8 % (45-73); Platelet Count 282 X10*3/uL (160-400); Red Blood Count 5.86 X10*6/uL (4.60-5.80); Red Cell Distribution Width 11.9 % (11.0-16.0); White Blood Count 12.6 X10*3/uL (4.8-10.8)
[2021-02-08 23:21] LABS: Anion Gap 12 (12-20); Blood Urea Nitrogen 19 mg/dL (9-16); Calcium 9.7 mg/dL (8.4-10.2); Carbon Dioxide 30 mmol/L (22-29); Chloride 97 mmol/L (96-108); Creatinine Clr Calc Pharmacy 93.2; Estimated Glomerular Filt Rate > 60; Glucose Random 106 mg/dL (60-115); Potassium 3.4 mmol/L (3.3-5.1); Sodium 136 mmol/L (135-145)
[2021-02-09 01:21] VITALS: BP 151/89; PULSE 98; RESP 20; O2SAT 98
[2021-02-09 03:35] VITALS: BP 130/77; PULSE 76; RESP 18; O2SAT 96
--- NOTE | 2021-02-09 04:53 | PC.NURSE ---
pt has not been seen by the provider as of this moment and the pt wants to leave. provider made aware.
--- NOTE | 2021-02-09 05:25 | ED.ABDPAIN ---
HPI - Abdominal Pain General Chief Complaint: Abdominal Pain Stated Complaint: Abdominal pain/Body aches Time Seen by Provider: 02/09/21 05:15 Source: patient Mode of arrival: ambulatory Limitations: no limitations History of Present Illness HPI narrative: 30-year-old male who presents emergency department for evaluation of abdominal pain , nausea and vomiting. Patient states that over the past 4 days he has had severe nausea. He states that any time he eats or drinks he has been vomiting. Denies any blood in the emesis. He also is complaining abdominal pain, he points to his epigastric area when asked to localize the pain. The pain is a constant, burning sensation which is moderate to severe in intensity. Patient states that he does have heartburn and takes omeprazole 20 mg once a day. He denied fever but he has been feeling chills. He denies weakness, lightheadedness or dizziness. Patient states that he has also been experiencing diarrhea, multiple episodes per day with no blood in the diarrhea. He states that this has been going on for months. Related Data Home Medications Medication Instructions Recorded Confirmed escitalopram oxalate 20 mg tablet 20 mg PO DAILY 05/03/20 (Lexapro) ibuprofen 600 mg tablet 600 mg PO QID 05/03/20 lorazepam 0.5 mg tablet (Ativan) 0.5 mg PO DAILY PRN 05/03/20 ondansetron HCl 4 mg tablet 4 mg PO Q6H 05/03/20 (Zofran) zolpidem 10 mg tablet (Ambien) 10 mg PO BEDTIME PRN 05/03/20 Previous Rx's Medication Instructions Recorded fluticasone 250 mcg-salmeterol 50 1 inh INHALATION BID 30 Days #1 ea 05/20/20 mcg/dose blistr powdr for inhalation (Wixela Inhub) ondansetron HCl 4 mg tablet 4 mg PO Q8H PRN #6 tab 06/08/20 (Zofran) albuterol sulfate 90 mcg/actuation 2 puff INHALATION Q4-6H PRN #6.7 g 08/09/20 aerosol inhaler benzonatate 100 mg capsule 100 mg PO TID PRN #14 cap 08/09/20 (Tesdarlene Ribeiro) dicyclomine 20 mg tablet 20 mg PO QID #14 tab 08/09/20 ondansetron HCl 4 mg tablet 4 mg PO Q8H PRN #10 tab 08/09/20 (Zofran) prednisone 10 mg tablet 40 mg PO DAILY 7 Days #28 tab 08/30/20 omalizumab 150 mg subcutaneous 150 mg SUBCUT Q4W 30 Days #1 ea 09/02/20 solution (Xolair) metoclopramide HCl 10 mg tablet 10 mg PO Q6H PRN #14 tab 02/09/21 (Reglan) omeprazole 20 mg capsule,delayed 20 mg PO BID 30 Days #60 cap 02/09/21 release prochlorperazine maleate 10 mg 10 mg PO Q6H PRN #20 tab 02/09/21 tablet (Compazine) Allergies Allergy/AdvReac Type Severity Reaction Status Date / Time peanut [PEANUT] Allergy Severe ANAPHYLAXIS Verified 11/28/20 16:23 adhesive tape Allergy Rash Verified 11/28/20 16:23 Review of Systems Review of Systems Yes all other systems are reviewed and are negative Physical Exam Vital Signs: Vital Signs: Last Vital Signs Temp 99.6 F 02/08/21 21:41 Pulse 90 02/09/21 05:45 Resp 16 02/09/21 05:45 BP 149/84 H 02/09/21 05:45 Pulse Ox 97 02/09/21 05:45 Body Mass Index 24.5 Const: General: cooperative and no acute distress Orientation/consciousness: oriented to person and oriented to place Limitations: no limitations HENMT: Head: Yes normal to inspection, Yes normocephalic and Yes atraumatic Ears: external ears normal General nose exam: Normal external nose present Face and sinus: Yes normal facial exam Mouth: Normal oral and palatal mucosa present Throat: Yes posterior oropharynx normal Eyes: General: appearance normal, both eyes and all related structures Pupils: Equal, round and reactive pupils present Neck: Neck: Yes normal visual inspection, Yes no lymphadenopathy, Yes trachea midline and Yes supple Chest: Chest palpation & inspection: normal inspection of the chest and normal palpation of entire chest wall Resp: Effort & Inspection: normal respiratory effort and able to speak in complete sentences Auscultation: clear to auscultation bilaterally Cardio: Rate: regular rate Rhythm: regular rhythm Heart sounds: S1 normal heart sound present, S2 normal heart sound present and no murmurs GI: Inspection: Yes normal to inspection Palpation (GI): Soft to palpation, Tenderness to palpation present (GI) in the epigastrum (Moderate) and no guarding Auscultation: normal bowel sounds : General: Yes no CVA tenderness Back/Spine/Pelvis: Back: no CVA tenderness Skin: General skin exam: no rashes or lesions noted Neuro: General: oriented to person and oriented to place Cranial nerves: Yes CN's II-XII intact bilaterally and Yes Equal, round and reactive pupils present Cognition (Neuro): normal cognition Motor exam (neuro): 5/5 motor strength present throughout Extrem: General: Yes normal to inspection Psych: Appearance: grossly normal Speech and movement: Normal speech and movement present Affect: normal affect Attitude: cooperative Thought process: Normal thought process present Thought content: Normal thought content present Course Course Course Narrative: 30-year-old male who presents emergency department for evaluation of 4 days constant nausea, vomiting and epigastric pain. Patient does have a history of GERD and takes omeprazole 20 mg once a day. Vital signs revealed an elevated blood pressure of 143/107 and tachycardia with a pulse of 103. Physical exam did reveal moderate midepigastric tenderness otherwise was unremarkable. [place] [address] with no anemia with an H&H of 17 and 47. Patient's BMP revealed an elevated bicarb of 30 but this is probably secondary to the patient's vomiting and diarrhea. Patient's COVID-19 test was negative. Patient's presentation is consistent with gastritis however the patient has also been experiencing diarrhea for 2 months therefore inflammatory bowel disease knees be considered as well. The patient was treated with Reglan 10 mg IV and normal saline IV x2 L. 0703: Patient is feeling significantly better after the above treatment. The patient will be discharged home with 2 anti emetics. He was prescribed Reglan 10 mg orally every 6-8 hours as needed for nausea and vomiting . If he is unable to take this orally he was prescribed Phenergan suppositories 25 mg 1 per rectum every 6 hours. The patient was also given a prescription for omeprazole 20 mg twice a day. He was discharged home pain MDM - Abdominal Pain Lab Data Result diagrams: 02/08/21 22:54 02/08/21 22:51 Labs: Lab Results 02/08/21 02/08/21 02/08/21 Range/Units 21:47 22:51 22:54 WBC 12.6 H (4.8-10.8) X10*3/uL RBC 5.86 H (4.60-5.80) X10*6/uL Hgb 17.3 (14.0-18.0) g/dl Hct 47.4 (42-52) % MCV 80.9 (80-98) fL MCH 29.5 (27.0-33.0) pg MCHC 36.5 H (31.0-36.0) g/dl RDW 11.9 (11.0-16.0) % Plt Count 282 D (160-400) X10*3/uL MPV 9.3 L (9.4-12.4) fL Immature Gran % (Auto) 0.3 (0.0-0.4) % Neut % (Auto) 56.8 (45-73) % Lymph % (Auto) 30.6 (20-40) % Upson % (Auto) 11.9 H (2-11) % Eos % (Auto) 0.2 (0-4) % Baso % (Auto) 0.2 (0-2) % Lymph # (Auto) 3.9 (1.2-4.9) X10*3/uL Upson # (Auto) 1.5 H (0.1-1.2) X10*3/uL Eos # (Auto) 0.0 (0.0-0.4) X10*3/uL Baso # (Auto) 0.0 (0.0-0.2) X10*3/uL Abs Immat Gran (auto) 0.04 H (0.00-0.03) X10*3/uL Absolute Neuts (auto) 7.1 (2.0-8.3) X10*3/uL Absolute Nucleated RBC 0.000 (0.0-0.012) X10*3/uL Nucleated RBC % (auto) 0.0 (0.0-0.2) /100WBC Sodium 136 (135-145) mmol/L Potassium 3.4 (3.3-5.1) mmol/L Chloride 97 (96-108) mmol/L Carbon Dioxide 30 H (22-29) mmol/L Anion Gap 12 (12-20) BUN 19 H (9-16) mg/dL Creatinine 0.97 (0.5-1.4) mg/dL Estim Creat Clear Calc 93.2 Estimated GFR > 60 Random Glucose 106 (60-115) mg/dL Calcium 9.7 D (8.4-10.2) mg/dL COVID-19 (JOSE) Negative (Negative) COVID-19 Clin Com See Note Discharge Plan Discharge Clinical Impression: Gastritis Qualifiers: Gastritis type: unspecified gastritis Chronicity: acute Gastritis bleeding: without bleeding Qualified Code(s): K29.00 - Acute gastritis without bleeding Diarrhea Qualifiers: Diarrhea type: unspecified type Qualified Code(s): R19.7 - Diarrhea, unspecified Vomiting Qualifiers: Vomiting type: unspecified Vomiting Intractability: non-intractable Nausea presence: with nausea Qualified Code(s): R11.2 - Nausea with vomiting, unspecified Patient Disposition: Home, Self-Care Instructions: Gastritis (ED) Additional Instructions: At this time, I believe that your abdominal pain nausea and vomiting is caused by inflammation of your stomach (gastritis). I am increasing your omeprazole from 20 mg once a day to 20 mg twice a day. Alternatively you can take 40 mg once a day. I am prescribing to anti-nausea/ anti-vomiting medications for you. Take Reglan (metoclopramide) 10 mg pills, 1 pill every 6-8 hours as needed for nausea and vomiting. If you are unable to take an oral medication then take Phenergan (promethazine) 25 mg suppositories, 1 suppository per rectum every 6-8 hours as needed for nausea and vomiting. Take Tylenol (acetaminophen) 500 mg pills, 2 pills every 4 to 6 hours as needed for pain. Do not take any [id number] NSAIDs (Advil, Motrin, ibuprofen, Aleve, naproxen). These medications can make gastritis worse. Follow-up with your doctor in 2 days. Please return to the emergency department if your symptoms get worse or if you develop any symptoms that are concerning to you. 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 Prescriptions: New prochlorperazine maleate [Compazine] 10 mg tablet 10 mg PO Q6H PRN (Reason: nausea and vomiting) Qty: 20 RF: 0 metoclopramide HCl [Reglan] 10 mg tablet 10 mg PO Q6H PRN (Reason: nausea and vomiting) Qty: 14 RF: 0 omeprazole 20 mg capsule,delayed release(DR/EC) 20 mg PO BID 30 Days Qty: 60 RF: 0 No Action ondansetron HCl [Zofran] 4 mg tablet 4 mg PO Q8H PRN (Reason: nausea and vomiting) Qty: 6 RF: 0 ondansetron HCl [Zofran] 4 mg tablet 4 mg PO Q8H PRN (Reason: nausea and vomiting) Qty: 10 RF: 0 dicyclomine 20 mg tablet 20 mg PO QID Qty: 14 RF: 0 albuterol sulfate 90 mcg/actuation HFA aerosol inhaler 2 puff inhalation Q4-6H PRN (Reason: shortness of breath or wheezing) Qty: 6.7 RF: 0 benzonatate [Tessalon Perles] 100 mg capsule 100 mg PO TID PRN (Reason: cough) Qty: 14 RF: 0 prednisone 10 mg tablet 40 mg PO DAILY 7 Days Qty: 28 RF: 0 Xolair 150 mg recon soln 150 mg subcut Q4W 30 Days Qty: 1 RF: 12 fluticasone propion-salmeterol [Wixela Inhub] 250-50 mcg/dose blister with device 1 inh inhalation BID 30 Days Qty: 1 RF: 6 PMFSH Past Medical History PMFSH Narrative: Past medical history: Please see below, the patient has a history of GERD as well and takes omeprazole. Past surgical history: Patient had a cholecystectomy January 2020. Social history: The patient denies tobacco use. He denies alcohol use. He denies drug use. Medical History Anxiety Asthma Cholecystectomy planned Depression Surgical History [place] teeth extracted Social History Social History Alcohol intake: former Patient Tobacco Use Status: Never used Tobacco Use of substances other than those prescribed or required for medical reasons: No Advance Directives: No Advance Directives Information Provided: No
[2021-02-09] MEDS: Metoclopramide HCl 10 MG/2 ML VIAL IVPUSH (05:40)
[2021-02-09] MEDS: 0.9 % Sodium Chloride 1,000 ML 999 ML IV ×2 (05:40)
[2021-02-09 05:45] VITALS: BP 149/84; PULSE 90; RESP 16; O2SAT 97
[2021-02-09 07:17] VITALS: BP 145/79; PULSE 94; RESP 16; TEMP 36.4; O2SAT 98
== END 2021-02-09 07:35 | disposition home or self-care (01) ==
PROVIDERS: Emergency Provider Emergency Medicine Emergency Medical Services; PCP Internal Medicine
DX: K29.00 Acute gastritis without bleeding (principal); R19.7 Diarrhea, unspecified; K21.9 Gastro-esophageal reflux disease without esophagitis; Z79.899 Other long term (current) drug therapy; Z90.49 Acquired absence of other specified parts of digestive tract; Z20.822 Contact with and (suspected) exposure to COVID-19
CPT/HCPCS: 36415; 80048; 85025; 87086; 87635; 96361; 96374; 99284; 99285; J2765

== ENCOUNTER 2021-02-16 08:00 | Outpatient (REF) | payer MEDICAID, SELFPAY | END 2021-02-16 08:01 | disposition home or self-care (01) | LOC: HO.MDS 08:00 | PROVIDERS: PCP Internal Medicine; Visit Provider Internal Medicine Pulmonary Disease | DX: J45.50 Severe persistent asthma, uncomplicated (principal) | CPT/HCPCS: 96372; J2357 ==

== ENCOUNTER 2021-03-16 07:51 | Outpatient (REF) | payer MEDICAID, SELFPAY | END 2021-03-16 07:52 | disposition home or self-care (01) | LOC: HO.MDS 07:51 | PROVIDERS: PCP Internal Medicine; Visit Provider Internal Medicine Pulmonary Disease | DX: J45.50 Severe persistent asthma, uncomplicated (principal) | CPT/HCPCS: 96372; J2357 ==

== ENCOUNTER 2021-04-13 08:41 | Outpatient (REF) | payer MEDICAID, SELFPAY | END 2021-04-13 08:42 | disposition home or self-care (01) | LOC: HO.MDS 08:41 | PROVIDERS: PCP Internal Medicine; Visit Provider Internal Medicine Pulmonary Disease | DX: J45.50 Severe persistent asthma, uncomplicated (principal) | CPT/HCPCS: 96372; J2357 ==

== ENCOUNTER 2021-05-12 14:19 | Outpatient (REF) | payer MEDICAID, SELFPAY | END 2021-05-12 14:20 | disposition home or self-care (01) | LOC: HO.MDS 14:19 | PROVIDERS: PCP Internal Medicine; Visit Provider Internal Medicine Pulmonary Disease | DX: J45.50 Severe persistent asthma, uncomplicated (principal) | CPT/HCPCS: 96372; J2357 ==

== ENCOUNTER 2021-06-09 07:58 | Outpatient (REF) | payer MEDICAID, SELFPAY | END 2021-06-09 07:59 | disposition home or self-care (01) | LOC: HO.MDS 07:58 | PROVIDERS: PCP Internal Medicine; Visit Provider Internal Medicine Pulmonary Disease | DX: J45.50 Severe persistent asthma, uncomplicated (principal) | CPT/HCPCS: 96372; J2357 ==

== ENCOUNTER 2021-07-22 03:14 | Emergency (ER) | payer MEDICAID, SELFPAY ==
[2021-07-22 03:36] VITALS: BP 145/87; PULSE 101; RESP 16; TEMP 37.1; O2SAT 96; BMI 24.0
[2021-07-22 04:00] VITALS: BP 131/72; PULSE 94; RESP 18; O2SAT 97
--- NOTE | 2021-07-22 04:16 | ED_ITS ---
HPI - Wound/Laceration General Chief Complaint: Wound/Laceration Stated Complaint: Small Lac Time Seen by Provider: 07/22/21 04:16 Source: patient Mode of arrival: ambulatory Limitations: no limitations History of Present Illness HPI narrative: patient was hanging a picture which fell a glass broke got superficial laceration on the right side of the face no other injury Related Data Home Medications Medication Instructions Recorded Confirmed escitalopram oxalate 20 mg tablet 20 mg PO DAILY 05/03/20 (Lexapro) ibuprofen 600 mg tablet 600 mg PO QID 05/03/20 lorazepam 0.5 mg tablet (Ativan) 0.5 mg PO DAILY PRN 05/03/20 ondansetron HCl 4 mg tablet 4 mg PO Q6H 05/03/20 (Zofran) zolpidem 10 mg tablet (Ambien) 10 mg PO BEDTIME PRN 05/03/20 Previous Rx's Medication Instructions Recorded fluticasone 250 mcg-salmeterol 50 1 inh INHALATION BID 30 Days #1 ea 05/20/20 mcg/dose blistr powdr for inhalation (Wixela Inhub) ondansetron HCl 4 mg tablet 4 mg PO Q8H PRN #6 tab 06/08/20 (Zofran) albuterol sulfate 90 mcg/actuation 2 puff INHALATION Q4-6H PRN #6.7 g 08/09/20 aerosol inhaler benzonatate 100 mg capsule 100 mg PO TID PRN #14 cap 08/09/20 (Tessalon Perles) dicyclomine 20 mg tablet 20 mg PO QID #14 tab 08/09/20 ondansetron HCl 4 mg tablet 4 mg PO Q8H PRN #10 tab 08/09/20 (Zofran) prednisone 10 mg tablet 40 mg PO DAILY 7 Days #28 tab 08/30/20 omalizumab 150 mg subcutaneous 150 mg SUBCUT Q4W 30 Days #1 ea 09/02/20 solution (Xolair) metoclopramide HCl 10 mg tablet 10 mg PO Q6H PRN #14 tab 02/09/21 (Reglan) omeprazole 20 mg capsule,delayed 20 mg PO BID 30 Days #60 cap 02/09/21 release prochlorperazine maleate 10 mg 10 mg PO Q6H PRN #20 tab 10/07/21 tablet (Compazine) Allergies Allergy/AdvReac Type Severity Reaction Status Date / Time peanut [PEANUT] Allergy Severe ANAPHYLAXIS Verified 11/28/20 16:23 adhesive tape Allergy Rash Verified 11/28/20 16:23 Review of Systems Review of Systems: Yes all other systems are reviewed and are negative [facility] Past Medical History Medical History Anxiety Asthma Cholecystectomy planned Depression Surgical History [place] teeth extracted Social History Social History Alcohol intake: former Patient Tobacco Use Status: Never used Tobacco Advance Directives: No Physical Exam Vital Signs: Vital Signs: Last Vital Signs Temp 98.7 F 07/22/21 03:36 Pulse 94 07/22/21 04:00 Resp 18 07/22/21 04:00 BP 131/72 07/22/21 04:00 Pulse Ox 97 07/22/21 04:00 BMI result Body Mass Index 24.0 Const: General: comfortable and no acute distress HENMT: Head images: 1. superficial 0.5 cm laceration 2. 0.2 cm laceration Procedures Laceration Laceration 1: Site: face Description: linear Skin layer closed with: other (dermabond) Discharge Plan Discharge Clinical Impression: Laceration Patient Disposition: Home, Self-Care Instructions: Facial Laceration (ED) Additional Instructions: local care as advised Prescriptions: No Action ondansetron HCl [Zofran] 4 mg tablet 4 mg PO Q8H PRN (Reason: nausea and vomiting) Qty: 6 0RF ondansetron HCl [Zofran] 4 mg tablet 4 mg PO Q8H PRN (Reason: nausea and vomiting) Qty: 10 0RF dicyclomine 20 mg tablet 20 mg PO QID Qty: 14 0RF albuterol sulfate 90 mcg/actuation HFA aerosol inhaler 2 puff inhalation Q4-6H PRN (Reason: shortness of breath or wheezing) Qty: 6.7 0RF benzonatate [Tessalon Perles] 100 mg capsule 100 mg PO TID PRN (Reason: cough) Qty: 14 0RF prochlorperazine maleate [Compazine] 10 mg tablet 10 mg PO Q6H PRN (Reason: nausea and vomiting) Qty: 20 0RF metoclopramide HCl [Reglan] 10 mg tablet 10 mg PO Q6H PRN (Reason: nausea and vomiting) Qty: 14 0RF omeprazole 20 mg capsule,delayed release(DR/EC) 20 mg PO BID 30 Days Qty: 60 0RF prednisone 10 mg tablet 40 mg PO DAILY 7 Days Qty: 28 0RF Xolair 150 mg recon soln 150 mg subcut Q4W 30 Days Qty: 1 12RF fluticasone propion-salmeterol [Wixela Inhub] 250-50 mcg/dose blister with device 1 inh inhalation BID 30 Days Qty: 1 6RF
--- NOTE | 2021-07-22 04:37 | PC.NURSE ---
PT EVALUATED BY DR BAILEY SMALL LAC AREA NOTED TO FOREHEAD. CARE OF WOUND EDUCATION PROVIDED TO PATIENT
== END 2021-07-22 04:54 | disposition home or self-care (01) ==
PROVIDERS: Emergency Provider Internal Medicine; PCP Internal Medicine
DX: S01.81XA Laceration without foreign body of other part of head, initial encounter (principal); W25.XXXA Contact with sharp glass, initial encounter; Y93.89 Activity, other specified; Y92.039 Unspecified place in apartment as the place of occurrence of the external cause; Y99.9 Unspecified external cause status
CPT/HCPCS: 12011; 99284

== ENCOUNTER 2021-08-01 15:02 | Outpatient (REF) | payer MEDICAID, SELFPAY | END 2021-08-01 15:03 | disposition home or self-care (01) | LOC: HO.MDS 15:02 | PROVIDERS: PCP Internal Medicine; Visit Provider Internal Medicine Pulmonary Disease | DX: J45.50 Severe persistent asthma, uncomplicated (principal) | CPT/HCPCS: 96372; J2357 ==

== ENCOUNTER 2021-08-29 13:30 | Outpatient (REF) | payer MEDICAID, SELFPAY | END 2021-08-29 13:31 | disposition home or self-care (01) | LOC: HO.MDS 13:30 | PROVIDERS: PCP Internal Medicine; Visit Provider Internal Medicine Pulmonary Disease | DX: J45.50 Severe persistent asthma, uncomplicated (principal) | CPT/HCPCS: 96372; J2357 ==

== ENCOUNTER 2021-09-26 15:00 | Outpatient (REF) | payer MEDICAID, SELFPAY | END 2021-09-26 15:01 | disposition home or self-care (01) | LOC: HO.MDS 15:00 | PROVIDERS: PCP Internal Medicine; Visit Provider Internal Medicine Pulmonary Disease | DX: J45.50 Severe persistent asthma, uncomplicated (principal) | CPT/HCPCS: 96372; J2357 ==

== ENCOUNTER 2021-10-26 08:23 | Outpatient (REF) | payer MEDICAID, SELFPAY | END 2021-10-26 08:24 | disposition home or self-care (01) | LOC: HO.MDS 08:23 | PROVIDERS: PCP Internal Medicine; Visit Provider Internal Medicine Pulmonary Disease | DX: J45.50 Severe persistent asthma, uncomplicated (principal) | CPT/HCPCS: 96372; J2357 ==

== ENCOUNTER 2021-11-03 10:45 | Outpatient (REF) | payer MEDICAID, SELFPAY ==
[2021-11-03 11:03] LABS: MANUAL DIFF FLAG NO
[2021-11-03 11:45] LABS: Basophils Percent Auto 0.3 % (0-2); Eosinophils Percent Auto 0.3 % (0-4); Hematocrit 46.9 % (42.0-52.0); Hemoglobin 16.4 g/dl (14.0-18.0); Imm Gran Abs Auto 0.03 X10*3/uL (0.00-0.03); Imm Gran Pct Auto 0.3 % (0.0-0.4); Lymphocytes Absolute Auto 2.8 X10*3/uL (1.2-4.9); Lymphocytes Percent Auto 32.3 % (20-40); Mean Corpuscular Hemoglobin 27.7 pg (27.0-33.0); Mean Corpuscular Volume 79.4 fL (80.0-98.0); Mean Platelet Volume 9.6 fL (9.4-12.4); Monocytes Absolute Auto 0.8 X10*3/uL (0.1-1.2); Monocytes Percent Auto 9.5 % (2-11); Neutrophils Percent Auto 57.3 % (45-73); Platelet Count 293 X10*3/uL (160-400); Red Blood Count 5.91 X10*6/uL (4.60-5.80); Red Cell Distribution Width 12.9 % (11.0-16.0); White Blood Count 8.7 X10*3/uL (4.8-10.8)
[2021-11-03 12:10] LABS: Anion Gap 13 (12-20); Blood Urea Nitrogen 21 mg/dL (9-16); Calcium 9.7 mg/dL (8.4-10.2); Carbon Dioxide 27 mmol/L (22-29); Chloride 101 mmol/L (96-108); Cholesterol 110 mg/dL; Estimated Glomerular Filt Rate > 60; Glucose Random 92 mg/dL (60-115); HDL Cholesterol 33 mg/dL; LDL Cholesterol Calculated 61 mg/dl; Potassium 3.6 mmol/L (3.3-5.1); Sodium 137 mmol/L (135-145); Triglycerides 81 mg/dL
[2021-11-03 12:24] LABS: Erythrocyte Sedimentation Rate 3 MM/HR (0-15)
== END 2021-11-03 10:46 | disposition home or self-care (01) ==
LOC: HO.LAB 10:45
PROVIDERS: PCP Internal Medicine; Visit Provider Internal Medicine
DX: J45.50 Severe persistent asthma, uncomplicated (principal); Z91.09 Other allergy status, other than to drugs and biological substances
CPT/HCPCS: 36415; 80048; 80061; 85025; 85652; 99212

== ENCOUNTER 2021-11-23 08:33 | Outpatient (REF) | payer MEDICAID, SELFPAY | END 2021-11-23 08:34 | disposition home or self-care (01) | LOC: HO.MDS 08:33 | PROVIDERS: Visit Provider Internal Medicine Pulmonary Disease | DX: J45.50 Severe persistent asthma, uncomplicated (principal) | CPT/HCPCS: 96372; J2357 ==

== ENCOUNTER 2021-12-26 08:27 | Outpatient (REF) | payer MEDICAID, SELFPAY | END 2021-12-26 08:28 | disposition home or self-care (01) | LOC: HO.MDS 08:27 | PROVIDERS: Visit Provider Internal Medicine Pulmonary Disease | DX: J45.50 Severe persistent asthma, uncomplicated (principal) | CPT/HCPCS: 96372; J2357 ==

== ENCOUNTER → 2022-01-31 12:03 | Outpatient (BNVA) | payer MEDICAID, SELFPAY | PROVIDERS: PCP Internal Medicine; Referring Provider Internal Medicine; Visit Provider Internal Medicine Cardiovascular Disease | DX: R07.9 Chest pain, unspecified (principal); I10 Essential (primary) hypertension | CPT/HCPCS: 93005; 99202 ==

== ENCOUNTER → 2022-02-08 07:49 | Outpatient (REF) | payer MEDICAID, SELFPAY ==
--- NOTE | 2022-02-08 07:51 | CA_ITS ---
Transthoracic Echocardiogram Patient (Last, First, Middle): Wilian Tomas, Gender: Male Date of : 1990 Age: 31 Procedure Date: 02/08/2022 Procedure Type: Transthoracic Echocardiogram Location: OP Height: 162.56 cm Weight: 65.77 kg BSA: 1.71 m2 Heart Rate: 74 bpm BP: 120 / 80 mmHg [employer] Treatment Operator: PEYMAN Ferguson MD: Carmelo Perez MD Business Lawyer: Chad Luna MD Symptoms: R07.9 - Chest pain, unspecified Study Quality: Fair/Contrast ECG Rhythm: Sinus Conclusions: - Essentially normal study Findings Procedure Information Contrast agent, definity, is being given per protocol without apparent complications. Left Ventricle Normal left ventricular size, thickness, and systolic function. The visually estimated ejection fraction is between 60-65%. Spectral Doppler is indicative of a normal filling pattern. Right Ventricle Normal right ventricular cavity size and systolic function. Atria Both atria are normal in size. There is lipomatous hypertrophy of the interatrial septum. There is no evidence of interatrial shunt. Aortic Valve Normal aortic valve structure and function. There is no aortic valve stenosis. There is no aortic valve regurgitation. Mitral Valve Normal mitral valve structure and function. There is no mitral valve regurgitation. There is no mitral valve stenosis. Pulmonic Valve The pulmonic valve is likely normal. Tricuspid Valve Normal tricuspid valve structure. Tricuspid regurgitation envelope is inadequate for calculation of right ventricular systolic pressure. Great Vessels All visible segments of the aorta are normal in size. The pulmonary artery was not well visualized. Venous The inferior vena cava is normal in size and collapses greater than 50% with inspiration. Pericardium/Pleural There is no evidence of pericardial effusion. Prior Study Comparison No prior study available for comparison. Measurements 2D Linear Measurements IVSd: 0.73 0.6-0.9/0.6-1.0 cm LVIDd: 4.49 3.9-5.3/4.2-5.9 cm LVIDd Index: 2.63 2.4-3.2/2.2-3.1 cm/m2 LVIDs: 3.97 2.0-3.6 cm LVPWd: 0.81 0.7-1.1 cm LA Diam: 2.40 2.7-3.8/3.0-4.0 cm LAIDs Index: 1.40 1.5-2.3 cm/m2 LV Mass: 133.77 67-162/88-224 g LV Mass Index: 78.23 43-95/49-115 g/m2 LVOT Diam: 1.80 3.0+(-)1.3 cm 2D Systolic Function EF 4C: 61.10 >55% EF 2C: 67.50 >55% EF BiP: 64.20 >55% Mitral Valve MV Pk E: 0.80 MV PK A: 0.77 MV Decel Time: 187.00 E/A: 1.00 E'Lateral: 12.20 E'Medial: 9.25 E/E' Med: 8.60 E/E' Lat: 6.50 PHT: 55.00 MVA PHT: 4.00 Decel Murray: 4.27 Aortic Valve AoV Pk Ronny: 1.22 AoV Mn Ronny: 0.86 AoV VTI: 0.24 AoV Pk Grad: 6.00 Aov Mn Grad: 3.00 ESTHER Cont.VTI: 1.97 LVOT LVOT Pk Ronny: 0.97 LVOT Mn Ronny: 0.66 LVOT VTI: 0.19 LVOT Pk Grad: 4.00 LVOT Mn Grad: 2.00 LVOT Diam: 1.80 LVOT Area: 2.54 Diastolic Function MV Pk E: 0.80 MV Pk A: 0.77 E/A: 1.00 E'Medial: 9.25 E/E' Med: 8.60 E' Laterial: 12.20 E/E' Lat: 6.50 Right Ventricle TAPSE (mm): 23.50 TVS' Ronny: 12.80 Tricuspid Valve RA Press: 3.00 Great Vessels Aorta Sinus of Valsalva: 3.70 2.0-3.5 cm Ao Asc: 3.40 2.1-3.4 cm Pulmonary Valve PV Pk Ronny: 0.84 Peak PV Grad: 3.00 Updated in Other Vendor System with Status of Final Chad Luna MD electronically signed on 02/09/2022 1:52:34 PM with status of Final
== END ==
LOC: HO.CARD 07:49
PROVIDERS: Visit Provider Internal Medicine Cardiovascular Disease
DX: R07.9 Chest pain, unspecified (principal)
CPT/HCPCS: 93306; Q9957

== ENCOUNTER 2022-03-01 08:05 | Outpatient (REF) | payer MEDICAID, SELFPAY | END 2022-03-01 08:06 | disposition home or self-care (01) | LOC: HO.MDS 08:05 | PROVIDERS: Visit Provider Internal Medicine Pulmonary Disease | DX: J45.50 Severe persistent asthma, uncomplicated (principal) | CPT/HCPCS: 96372; J2357 ==

== ENCOUNTER 2022-04-05 07:32 | Outpatient (REF) | payer MEDICAID, SELFPAY | END 2022-04-05 07:33 | disposition home or self-care (01) | LOC: HO.MDS 07:32 | PROVIDERS: Visit Provider Internal Medicine Pulmonary Disease | DX: J45.50 Severe persistent asthma, uncomplicated (principal) | CPT/HCPCS: 96372; J2357 ==

== ENCOUNTER 2022-04-26 08:30 | Outpatient (REF) | payer MEDICAID, SELFPAY ==
--- NOTE | ~2022-04-26 | CT_ITS ---
EXAMINATION: CT ABDOMEN AND PELVIS WITHOUT CONTRAST CLINICAL INFORMATION: Pelvic and perineal pain. COMPARISON: 08/09/2020 TECHNIQUE: Multidetector volumetric imaging was performed from the superior aspect of the liver through the pubic symphysis. Sagittal and coronal reformatted images were obtained on the technologist's workstation. This CT examination was performed using dose optimization techniques as appropriate, variously including the following: *Automated exposure control *Adjustment of mA and/or kV according to patient size (this includes techniques or standardized protocols for targeted exams where dose is matched to indication/reason for exam; i.e. extremities or head) *Use of iterative reconstruction technique DLP: 300 mGy-cm FINDINGS: LUNG BASES: The visualized lung bases are unremarkable. LIVER, GALLBLADDER, AND BILIARY TREE: The liver is normal in size, shape, and attenuation. No focal hepatic lesion or biliary ductal dilatation is present. Cholecystectomy. PANCREAS: Unremarkable. SPLEEN: Unremarkable. ADRENAL GLANDS: Unremarkable. KIDNEYS AND URETERS: The kidneys are normal in size, shape, and attenuation. No hydronephrosis or hydroureter. Right lower pole 0.2 cm calculus is 8 cm from the posterior axillary line. BLADDER: Unremarkable. GASTROINTESTINAL TRACT: The stomach is unremarkable. Normal caliber small bowel. No obstruction. Normal appendix. No colonic wall thickening or inflammation. Sigmoid diverticulosis without diverticulitis. No free air or free fluid. ABDOMINAL WALL: No significant hernia is appreciated. LYMPH NODES: Normal. VASCULAR: Unremarkable. PELVIC VISCERA: The prostate and seminal vesicles are unremarkable. OSSEOUS STRUCTURES: No acute or suspicious osseous abnormality. CT/CT abdomen pelvis wo IV con IMPRESSION: 1. No acute findings in the abdomen or pelvis. No inflammatory changes. 2. Nonobstructing right lower pole renal calculus. Fleischner guidelines were followed.
== END 2022-04-26 08:31 | disposition home or self-care (01) ==
LOC: HO.CT 08:30
PROVIDERS: Visit Provider Nurse Practitioner Family
DX: R10.9 Unspecified abdominal pain (principal); R10.2 Pelvic and perineal pain
CPT/HCPCS: 74176

== ENCOUNTER 2022-06-01 14:08 | Outpatient (REF) | payer MEDICAID, SELFPAY | END 2022-06-01 14:09 | disposition home or self-care (01) | LOC: HO.MDS 14:08 | PROVIDERS: Visit Provider Internal Medicine Pulmonary Disease | DX: J45.50 Severe persistent asthma, uncomplicated (principal) | CPT/HCPCS: 96372; J2357 ==

== ENCOUNTER 2022-06-29 07:39 | Outpatient (REF) | payer MEDICAID, SELFPAY | END 2022-06-29 07:40 | disposition home or self-care (01) | LOC: HO.MDS 07:39 | PROVIDERS: Visit Provider Internal Medicine Pulmonary Disease | DX: J45.50 Severe persistent asthma, uncomplicated (principal) | CPT/HCPCS: 96372; J2357 ==

== ENCOUNTER 2022-07-27 08:03 | Outpatient (REF) | payer MEDICAID, SELFPAY | END 2022-07-27 08:04 | disposition home or self-care (01) | LOC: HO.MDS 08:03 | PROVIDERS: Visit Provider Internal Medicine Pulmonary Disease | DX: J45.50 Severe persistent asthma, uncomplicated (principal) | CPT/HCPCS: 96372; J2357 ==

== ENCOUNTER 2022-08-24 13:40 | Outpatient (REF) | payer MEDICAID, SELFPAY | END 2022-08-24 13:41 | disposition home or self-care (01) | LOC: HO.MDS 13:40 | PROVIDERS: Visit Provider Internal Medicine Pulmonary Disease | DX: J45.50 Severe persistent asthma, uncomplicated (principal) | CPT/HCPCS: 96372; J2357 ==

== ENCOUNTER 2022-09-21 10:12 | Outpatient (REF) | payer MEDICAID, SELFPAY | END 2022-09-21 10:13 | disposition home or self-care (01) | LOC: HO.MDS 10:12 | PROVIDERS: Visit Provider Internal Medicine Pulmonary Disease | DX: J45.50 Severe persistent asthma, uncomplicated (principal) | CPT/HCPCS: 96372; J2357 ==

== ENCOUNTER 2022-10-25 09:59 | Outpatient (REF) | payer MEDICAID, SELFPAY | END 2022-10-25 10:00 | disposition home or self-care (01) | LOC: HO.MDS 09:59 | PROVIDERS: Visit Provider Internal Medicine Pulmonary Disease | DX: J45.50 Severe persistent asthma, uncomplicated (principal) | CPT/HCPCS: 96372; J2357 ==

== ENCOUNTER 2022-11-22 | Outpatient (REF) | payer MEDICAID, SELFPAY | END 2022-11-22 00:01 | disposition home or self-care (01) | LOC: CF | PROVIDERS: Visit Provider Surgery Vascular Surgery | DX: I83.11 Varicose veins of right lower extremity with inflammation (principal) | CPT/HCPCS: 99202; J2357 ==

== ENCOUNTER 2022-11-22 11:35 | Outpatient (AMB) | payer MEDICAID, SELFPAY ==
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
== END 2022-11-22 12:04 | disposition home or self-care (01) ==
PROVIDERS: Visit Provider Surgery Vascular Surgery
DX: I83.11 Varicose veins of right lower extremity with inflammation (principal)
CPT/HCPCS: 99204

== ENCOUNTER 2022-12-17 09:56 | Outpatient (REF) | payer MEDICAID, SELFPAY | END 2022-12-17 09:57 | disposition home or self-care (01) | LOC: HO.MDS 09:56 | PROVIDERS: Visit Provider Internal Medicine Pulmonary Disease | DX: J45.50 Severe persistent asthma, uncomplicated (principal) | CPT/HCPCS: 96372; J2357 ==

== ENCOUNTER 2022-12-20 10:37 | Outpatient (REF) | payer MEDICAID, SELFPAY ==
--- NOTE | ~2022-12-20 | US_ITS ---
EXAMINATION: US LOWER EXTREMITY VENOUS (REFLUX EXAM), BILATERAL CLINICAL INDICATION: Chronic venous insufficiency with lower extremity of varicose veins with inflammation COMPARISON: None. TECHNIQUE: Color flow triplex imaging and compression Doppler was performed to evaluate both the deep and the superficial systems bilaterally. To evaluate the superficial system, the examination was performed in the upright position. Color-flow Doppler ultrasound and compression ultrasound were utilized. In addition, maneuvers were utilized to demonstrate reflux. FINDINGS: 1. DEEP VENOUS ULTRASOUND OF THE RIGHT LOWER EXTREMITY: Common Femoral Vein: Compressible, normal respiratory variation and augmented flow. Femoral Vein: Compressible, normal color flow and augmentation. Popliteal Vein: Compressible, normal augmentation. Deep Reflux: There is no evidence of reflux in the deep system in either the common femoral vein or the popliteal vein. There is no evidence of a Castro's cyst. 2. SUPERFICIAL ULTRASOUND WITH DOPPLER OF RIGHT LOWER EXTREMITY: GREAT SAPHENOUS VEIN: Saphenofemoral Junction: 0.9 cm; Reflux: 0 ms Proximal Thigh: 0.4 cm; Reflux: 0 ms Mid Thigh: 0.4 cm; Reflux: 0 ms Above Knee: 0.4 cm; Reflux: 0 ms At Knee: 0.4 cm; Reflux: 0 ms Below Knee: 0.3 cm; Reflux: 0 ms Mid Calf: 0.3 cm; Reflux: 0 ms Ankle: 0.3 cm; Reflux: 0 ms DUPLICATED MEDIAL GREAT SAPHENOUS VEIN: Diameter: 0.4 cm Reflux: NA DUPLICATED LATERAL GREAT SAPHENOUS VEIN: Diameter: None imaged Reflux: NA SMALL SAPHENOUS VEIN: Proximal: 0.3 cm; Reflux: 0 ms Distal: 0.2 cm; Reflux: 0 ms VEIN OF GIACOMINI: Size: NA Reflux: NA PERFORATORS: Location: None significant Size: NA Reflux: NA VARICOSITIES: Location: None significant Size: NA Reflux: NA 3. DEEP VENOUS ULTRASOUND OF THE LEFT LOWER EXTREMITY: Common Femoral Vein: Compressible, normal respiratory variation and augmented flow. Femoral Vein: Compressible, normal color flow and augmentation. Popliteal Vein: Compressible, normal augmentation. Deep Reflux: There is no evidence of reflux in the deep system in either the common femoral vein or the popliteal vein. There is no evidence of a Castro's cyst. 4. SUPERFICIAL ULTRASOUND WITH DOPPLER OF LEFT LOWER EXTREMITY: GREAT SAPHENOUS VEIN: Saphenofemoral Junction: 0.6 cm; Reflux: 0 ms Proximal Thigh: 0.4 cm; Reflux: 0 ms Mid Thigh: 0.4 cm; Reflux: 0 ms Above Knee: 0.5 cm; Reflux: 0 ms At Knee: 0.4 cm; Reflux: 0 ms Below Knee: 0.4 cm; Reflux: 0 ms Mid Calf: 0.3 cm; Reflux: 720 ms Ankle: 0.2 cm; Reflux: 0 ms DUPLICATED MEDIAL GREAT SAPHENOUS VEIN: Diameter: None imaged Reflux: NA DUPLICATED LATERAL GREAT SAPHENOUS VEIN: Diameter: None imaged Reflux: NA SMALL SAPHENOUS VEIN: Proximal: 0.2 cm; Reflux: 0 ms Distal: 0.2 cm; Reflux: 0 ms VEIN OF GIACOMINI: Size: NA Reflux: NA PERFORATORS: Location: None significant Size: NA Reflux: NA VARICOSITIES: Location: None significant Size: NA Reflux: NA US/US venous duplex LE BI IMPRESSION: Right: No significant superficial venous insufficiency or reflux. Scattered tiny varicose veins. No significant varicosities otherwise. Left: Single focal area of moderate reflux in the left great saphenous vein at the mid calf. No significant venous insufficiency in the remaining segments of the left great saphenous vein or small saphenous vein. Scattered tiny varicose veins. No significant varicosities otherwise.
== END 2022-12-20 10:38 | disposition home or self-care (01) ==
LOC: HO.US 10:37
PROVIDERS: PCP Internal Medicine; Visit Provider Surgery Vascular Surgery
DX: I83.11 Varicose veins of right lower extremity with inflammation (principal)
CPT/HCPCS: 93970

== ENCOUNTER 2022-12-25 11:07 | Outpatient (AMB) | payer MEDICAID, SELFPAY ==
[2022-12-25 11:09] VITALS: BP 128/88; PULSE 88; O2SAT 98; BMI 24.5
--- NOTE | 2022-12-25 11:09 | MHC.OFFVIS ---
Intake Vital Signs 12/25/22 11:09 Height 5 ft 4 in Weight 143 lb BMI 24.5 BP 128/88 Blood Pressure Location Rt brachial Position Sitting Pulse 88 Pulse Source Pulse Oximeter Pulse Oximetry (%) 98 Oxygen Delivery Method Room Air Intake Visit Reasons: Follow up s/p US 12/20/22 Intake Note: Pt presents to the office today for a follow up s/p US. Pt states both legs are still painful and at this point are equally as painful.He states the bottom of both feet hurt. Pt states his whole legs and knees are painful.He denies any numbness or tingling in his legs and feet. Allergies peanut [PEANUT] Allergy (Severe, Verified 12/25/22 11:10) ANAPHYLAXIS adhesive tape Allergy (Verified 12/25/22 11:10) Rash HPI Follow up s/p US 12/20/22 HPI Details Very pleasant 32-year-old gentleman presents for follow-up regarding venous insufficiency. He has had chronic lower extremity pain. Upon discussion with him he has lower back issues and need reports some numbness and discomfort bilateral lower extremities. Does have occasional swelling. Now presents for follow-up with venous insufficiency testing. [facility] Medical History Anxiety Asthma Cholecystectomy planned Depression Surgical History History of cholecystectomy [place] teeth extracted Family History Mother Hypotension Father Alcoholism Brother HTN (hypertension) Asthma Obesity Sister Dyslexia Social History Alcohol intake: current Alcohol intake frequency: a few times a month Alcohol type: wine Patient Tobacco Use Status: Never used Tobacco Review of Systems Const All systems reviewed & are unremarkable except as noted in HPI and below Reports no additional complaints ENT Reports Normal hearing present Card Denies chest pain, Denies chest pain at rest, Denies chest pain with activity and Denies pedal edema Resp Denies cough GI Denies abdominal pain Musc Denies abnormal gait, Denies muscle cramps and Denies radiating pain into limb Skin/Breast Denies skin ulcer and Denies wounds Neuro Reports Normal hearing present and Denies abnormal gait Psych Reports no additional complaints Physical Exam Vital Signs: Last Vital Signs Pulse 88 12/25/22 11:09 BP 128/88 12/25/22 11:09 Pulse Ox 98 12/25/22 11:09 Oxygen Delivery Method Room Air 12/25/22 11:09 BMI result Body Mass Index 24.5 Const General: cooperative, healthy appearing and comfortable Orientation/consciousness: oriented to person, oriented to place and oriented to time HEENT Head: Yes normal to inspection Neck Neck: Yes normal visual inspection Carotids: no bruits Chest Chest palpation & inspection: normal inspection of the chest Resp Effort & Inspection: normal respiratory effort and able to speak in complete sentences Auscultation: clear to auscultation bilaterally, no crackles, no rales, no rhonchi and no wheezes Cardio Rate: regular rate Rhythm: regular rhythm Heart sounds: S1 normal heart sound present and S2 normal heart sound present Bruits: no carotid bruits Peripheral pulses: Peripheral pulses 2+ throughout GI Inspection: Yes normal to inspection Skin Wounds: no wounds Hair: normal Neuro General: oriented to person, oriented to place and oriented to time Cranial nerves: Yes CN's II-XII intact bilaterally and Yes Normal hearing present Cognition (Neuro): normal cognition Motor exam (neuro): 5/5 motor strength present throughout Extrem Other: venous exam: +1 edema General: No clubbing, No cyanosis and Yes edema Psych Appearance: grossly normal Mental Status: mental status grossly normal Speech and movement: Normal speech and movement present Results Reviewed Results Reviewed: Brief summary of venous insufficiency testing is as follows: right great saphenous vein: negative right small saphenous vein: negative right accessory vein: none present left great saphenous vein: negative left small saphenous vein: negative left accessory vein: none present Please note there is no evidence of any venous aneurysms or significant tortuosity Assessment & Plan Assessment & Plan (1) Leg pain, bilateral: Code(s): M79.604 - Pain in right leg; M79.605 - Pain in left leg Plan: In short patient has bilateral lower extremity pain and discomfort. It is unclear the etiology of this. 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 From a vascular standpoint he has palpable arterial pulses and he is negative for any significant venous insufficiency. I do believe this may be more neurogenic in nature and may be related to the back. These findings were discussed with the patient. He may benefit from a pain management referral. We did take the liberty of ordering this as well. He will follow up with us on an as-needed basis. Thank you for allowing us to assist in his care. If there are any questions or concerns please do not hesitate to contact us. Orders: Referrals Pain Management Referral M54.9 - Dorsalgia, unspecified, M79.606 - Pain in leg, unspecified Coding Level of Care Code Est Pt Level 4 (80245) Diagnoses Leg pain, bilateral M79.604; M79.605
== END 2022-12-25 11:26 | disposition home or self-care (01) ==
PROVIDERS: Visit Provider Surgery Vascular Surgery
DX: M79.604 Pain in right leg (principal); M79.605 Pain in left leg
CPT/HCPCS: 99213

== ENCOUNTER 2022-12-25 11:07 | Outpatient (REF) | payer MEDICAID, SELFPAY ==
[2022-12-26 13:12] LABS: Influenza A PCR NEGATIVE (Negative); Influenza B PCR NEGATIVE (Negative); Resp Syncy Virus RNA Qual PCR NEGATIVE (Negative); SARS COV2 PCR INHOUSE NEGATIVE (Negative)
== END 2022-12-25 11:08 | disposition home or self-care (01) ==
LOC: HO.HHCLNP 11:07
PROVIDERS: Visit Provider Internal Medicine
DX: Z20.822 Contact with and (suspected) exposure to COVID-19 (principal); J45.21 Mild intermittent asthma with (acute) exacerbation; M79.604 Pain in right leg; M79.605 Pain in left leg
CPT/HCPCS: 0241U; 99212

== ENCOUNTER 2022-12-27 10:47 | Outpatient (REF) | payer MEDICAID, SELFPAY | END 2022-12-27 10:48 | disposition home or self-care (01) | LOC: HO.HHCL 10:47 | PROVIDERS: Visit Provider Internal Medicine | DX: Z13.89 Encounter for screening for other disorder (principal) ==

== ENCOUNTER 2023-01-04 09:10 | Outpatient (REF) | payer MEDICAID, SELFPAY ==
[2023-01-04 11:23] LABS: Cholesterol 140 mg/dL (<200); HDL Cholesterol 44 mg/dL (>40); LDL Cholesterol Calculated 84 mg/dL (<100); Triglycerides 61 mg/dL (<150)
[2023-01-04 11:27] LABS: Anion Gap 14 (12-20); Blood Urea Nitrogen 16 mg/dL (9-16); Calcium 9.6 mg/dL (8.4-10.2); Carbon Dioxide 25 mmol/L (22-29); Chloride 104 mmol/L (96-108); Estimated Glomerular Filt Rate > 60; Glucose Random 92 mg/dL (60-115); Potassium 3.2 mmol/L (3.3-5.1); Sodium 140 mmol/L (135-145)
[2023-01-04 11:38] LABS: Reflex LDLD? No
[2023-01-05 14:23] LABS: HBS Num1 > 1000.00 mIU/mL (0-7.99); HBc Num1 0.08 S/CO (0.00-0.79); HBsAGNum1 0.34 S/CO (0.00-0.99); HIV AB/AG Nonreactive (Nonreactive); HIV Num 1 0.27 S/CO (0.00-0.99); Hepatitis A Antibody IgM 0.19 Index (0-0.79); Hepatitis B Core Antibody Nonreactive (Nonreactive); Hepatitis B Surface Antigen Negative (Negative); ~HepC Num1 0.07 S/CO (0.00-0.79); ~Hepatitis A Antibody IgM Nonreactive (Nonreactive); ~Hepatitis B Surface Antibody REACTIVE (Nonreactive); ~Hepatitis C Antibody Nonreactive (Nonreactive)
== END 2023-01-04 09:11 | disposition home or self-care (01) ==
LOC: HO.LAB 09:10
PROVIDERS: PCP Internal Medicine; Visit Provider Internal Medicine
DX: Z13.89 Encounter for screening for other disorder (principal)
CPT/HCPCS: 36415; 80048; 80061; 86704; 86706; 86709; 86803; 87340; 87389

== ENCOUNTER 2023-01-31 13:42 | Outpatient (AMB) | payer MEDICAID, SELFPAY ==
--- NOTE | 2023-01-31 14:00 | MHC.OFFVIS ---
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 Allergies peanut [PEANUT] Allergy (Severe, Verified 01/31/23 14:04) ANAPHYLAXIS adhesive tape Allergy (Verified 01/31/23 14:04) Rash Medication List - Last Reconciled 01/31/23 by Cesilia Fang NP albuterol sulfate 90 mcg/actuation 2 puffs inhalation Q4-6H PRN albuterol sulfate mg inhalation TID PRN amlodipine-benazepril 5-40 mg 1 cap PO DAILY bismuth subsalicylate (Stomach Relief) 1 tab PO TID PRN epinephrine IM DIRECTED escitalopram oxalate (Lexapro) 20 mg PO DAILY famotidine (Heartburn Relief (famotidine)) 10 mg PO BID PRN fluticasone propion-salmeterol 250-50 mcg/dose (Advair Diskus) 1 ea PO BID ibuprofen 600 mg PO QID PRN lorazepam (Ativan) 0.5 mg PO DAILY PRN omalizumab (Xolair) 150 mg subcut Q4W 30 days ondansetron HCl (Zofran) 4 mg PO Q6H quetiapine 50 mg PO BID zolpidem (Ambien) 10 mg PO BEDTIME PRN HPI HPI Comments History of Present Illness Details 32-year-old male presents for a one-year follow-up. He has a history of HTN and chest pain. He reports today that he has been getting intermittent sharp pain in the left side of his chest at rest and doing minimal exertion daily activities. These episodes are accompanied by lightheadedness, SOB, blurry vision, and diaphoresis. These are the same chest discomfort that he had at his last visit but the last two months they are increasing to once to twice a week. They resolve with laying down. Has not noted chest pain with exertion. Denies any syncope or palpations. Echocardiogram 02/2022 was essentially normal. Blood pressure high on arrival - rechecked by me 130/70. Reports he did not take his medication this morning but he checks his blood pressure periodically at home and it has been within normal limits. Reports family history of cardiac conditions but unsure the exact medical conditions. COUNT INCLUDES [facility] Medical History Anxiety Asthma Cholecystectomy planned Depression Surgical History History of cholecystectomy [place] teeth extracted Family History Mother Hypotension Father Alcoholism Brother HTN (hypertension) Asthma Obesity Sister Dyslexia Social History Alcohol intake: current Alcohol intake frequency: a few times a month Alcohol type: wine Patient Tobacco Use Status: Never used Tobacco Review of Systems ENT Reports dizziness Card Denies chest pain, Denies chest pain at rest, Denies chest pain with activity, Denies rapid heart rate, Denies pedal edema, Denies edema, Denies leg edema, Denies lightheadedness, Denies palpitations, Denies dyspnea, Denies dyspnea on exertion and Denies orthopnea Resp Denies cough, Denies dyspnea and Denies dyspnea on exertion GI Denies hematochezia and Denies change in stool character Musc Denies abnormal gait, Reports limited range of motion, Reports muscle cramps, Denies muscle weakness, Denies numbness, Denies radiating pain into limb, Denies stiffness and Denies tingling Neuro Denies abnormal gait, Reports dizziness, Denies numbness and Denies tingling Endo Denies palpitations Physical Exam Vital Signs: Last Vital Signs BP 140/82 H 01/31/23 14:01 BMI result Body Mass Index 24.0 Office Procedures EKG Details: EKG today Normal Sinus Rhythm rate 95 bpm. QRS 82 ms. QTc 24ms. [id number], Complete Assessment & Plan Assessment & Plan (1) Chest pain: Code(s): R07.9 - Chest pain, unspecified (2) Essential hypertension: Code(s): I10 - Essential (primary) hypertension Plan Continue blood pressure monitoring at home along with medications. Chest pain is atypical sounding but will do a ETT and holter to rule out arrhythmias and ischemia. Return in [address] Perez or sooner if needed. Will call with results. Orders: Orders CA stress test Today I10 - Essential (primary) hypertension, R07.9 - Chest pain, unspecified ECG holter monitor 48 hour Today I10 - Essential (primary) hypertension, R07.9 - Chest pain, unspecified Coding Level of Care Code Est Pt Level 3 (11484) Diagnoses Chest pain R07.9 Essential hypertension I10 CPT Codes EKG - CPT: [id number], Complete ([id number])
[2023-01-31 14:01] VITALS: BP 140/82; PULSE 95; BMI 24.0
[2023-01-31 14:25] VITALS: BP 130/70
== END 2023-01-31 14:38 | disposition home or self-care (01) ==
PROVIDERS: PCP Internal Medicine; Visit Provider Nurse Practitioner
DX: R07.9 Chest pain, unspecified (principal); I10 Essential (primary) hypertension
CPT/HCPCS: 93010; 99213

== ENCOUNTER → 2023-01-31 13:42 | Outpatient (BNVA) | payer MEDICAID, SELFPAY | PROVIDERS: PCP Internal Medicine; Visit Provider Nurse Practitioner | DX: R07.9 Chest pain, unspecified (principal); I10 Essential (primary) hypertension | CPT/HCPCS: 93005; 99212 ==

== ENCOUNTER → 2023-02-14 08:25 | Outpatient (REF) | payer MEDICAID, SELFPAY ==
--- NOTE | 2023-02-14 08:28 | HM_ITS ---
* Total monitoring time 2 days. * Underlying rhythm is sinus. Average ventricular rate 90/Min. Range 61 to 157/Min. About 29% of the time, rate > 100/Min. * Very rare supraventricular and ventricular ectopy. * No sustained arrhythmias no significant. * No significant pauses or AV blocks. * No patient markers. Diary not submitted. MTDD
--- NOTE | 2023-02-14 08:28 | CA_ITS ---
Acquisition Time: 2023-02-14 08:35:06 Total Exercise Time: 00:09:35 Test Indications: chest pain Medications: Protocol: LEONARDO Max HR: 179 BPM 95% of Pred: 188 BPM Max BP: 180/070 mmHG Max Work Load: 11.0 METS Exercisd stress text exercise 9 min 35 sec of Leonardo protocol achieving 95% MPHR, with 2/10 chest pressure at 7 mins (different than chest pain he gets at home), with mild SOB, without arrhythmias, with normotensive response to exercise, without EKG changes. Chest pain resolved with rest. Test reviewed with Dr. Perez. Referred By: Cesilia Fang Overread By: Cesilia Fang
[2023-02-14 10:47] LABS: Potassium 3.7 mmol/L (3.3-5.1)
[2023-02-14 11:13] LABS: Vitamin D 25-OH Total 35.7 ng/mL (>30)
[2023-02-14 11:17] LABS: Vitamin B12 446 pg/mL (200-900)
== END ==
LOC: HO.CARD 08:25
PROVIDERS: PCP Internal Medicine; Visit Provider Nurse Practitioner
DX: R07.9 Chest pain, unspecified (principal); E87.6 Hypokalemia; I10 Essential (primary) hypertension; R53.1 Weakness
CPT/HCPCS: 36415; 82306; 82607; 82746; 84132; 93017; 93225

== ENCOUNTER → 2023-02-14 08:28 | Outpatient (BNV) | payer MEDICAID, SELFPAY | PROVIDERS: PCP Internal Medicine; Visit Provider Nurse Practitioner | DX: I47.10 Supraventricular tachycardia, unspecified (principal); R07.9 Chest pain, unspecified | CPT/HCPCS: 93016; 93018; 93227 ==

== ENCOUNTER 2024-08-12 11:53 | Outpatient (REF) | payer SELFPAY ==
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
--- OUTSIDE RECORDS SUMMARY | 2024-08-12 14:02 | XMS_ITS | Encounter Summary ---
Author Organization [employer] Address [address] [facility] 7 [place] [address] Care Team Providers Care Foreign Collection Clerk Name Role Phone Sandhya Darby MD Primary Care Provider + Raza Coto PharmD Unavailable [phone] Reason for Visit * Reason Comments Med Change Request Encounter Details Date Type Department Care Team (Late st Contact Info) Description 08/12/2024 Refill [facility] [address] [place], [place] [phone] Estella Cuevas NP [address] [place], [place] [phone] Mild intermittent asthma with acute exacerbation Social History Tobacco Use Types Packs/Day Years Used Date Smoking Tobacco: Never Passive Smoke Exposure: Never Smokeless Tobacco: Never Alcohol Use Standard Drinks/Week Comments Never 0 [...] or Gray 03/05/2022 10 :36 AM EDT documented as of this encounter Plan of Treatment Upcoming Encounters Date Type Department Care Team (Late st Contact Info) Description 08/27/2024 10:00 AM EDT Clinical Support [facility] [address] [place] [address] 10/08/2024 9:45 AM EDT Office Visit [facility] [address] [place] [address] Sandhya Darby MD [address] [place] [address] 12/02/2024 9:30 AM EDT Office Visit [facility] [address] [place] [address] Bharathi, Louisa, OD [address] [place] [address] documented as of this encounter Goals Goal Patient Goal Type Associated Problems Recent Progress Patient-Stated? Author Blood Pressure < 140/90 Blood Pressure 142/82( 025 11:38 AM EDT) No Raza Coto, Sebas documented as of this encounter Visit Diagnoses Diagnosis Mild intermittent asthma with acute exacerbation documented in this encounter Care Teams Foreign Collection Clerk Relationship Specialty Start Date End Date Sandhya Darby MD [address] [place] [phone] PCP - General Family Medicine 02/12/19 Raza Coto, PharmD [address] [place] [address] Pharmacist Internal Medicine 01/28/23 documented as of this encounter
--- OUTSIDE RECORDS SUMMARY | 2024-08-12 14:02 | XMS_ITS | Encounter Summary ---
Author Organization [employer] Address [address] [facility] 7t [place] [address] Care Team Providers Care Programming Equipment Operator Name Role Phone Sandhya Darby MD Primary Care Provider + Raza Coto PharmD Unavailable [phone] Reason for Visit * Reason Onset Date Comments Letter for School/Work 10/04/2023 Encounter Details Date Type Department Care Team ([facility] st Contact Info) Description 10/04/2023 Telephone [facility] [address] [place], [place] [phone] Sandhya Darby MD [address] [place], [place] [phone] Letter for School/Work Social History Tobacco Use Types Packs/Day Years [...] AM EDT documented as of this encounter Miscellaneous Notes * Telephone Encounter - Raysa Birch - 10/04/2023 4:11 PM EDT Tc from pt requesting a letter stating last PE and pt can work without restrictions to be faxed to [phone]. Pt states needs it urgently or will be taken off the schedule. Please contact pt at [phone] documented in this encounter Plan of Treatment Upcoming Encounters Date Type Department Care Team (Late st Contact Info) Description 08/27/2024 10:00 AM EDT Clinical Support [facility] [address] [place] [address] 10/08/2024 9:45 AM EDT Office Visit [facility] [address] [place] [address] Sandhya Darby MD [address] [place] [address] 12/02/2024 9:30 AM EDT Office Visit [facility] [address] [place] [address] Louisa Garvin, EMILIA [address] [place] [address] documented as of this encounter Goals Goal Patient Goal Type Associated Problems Recent Progress Patient-Stated? Author Blood Pressure < 140/90 Blood Pressure 142/82( 025 11:38 AM EDT) No Raza Coto, PharmD documented as of this encounter Visit Diagnoses Not on filedocumented in this encounter Care Teams Programming Equipment Operator Relationship Specialty Start Date End Date Sandhya Darby MD [address] [place] [address] PCP - General Family Medicine 02/12/19 Raza Coto, PharmD [address] [place] [address] Pharmacist Internal Medicine 01/28/23 documented as of this encounter
--- OUTSIDE RECORDS SUMMARY | 2024-08-12 14:02 | XMS_ITS | Encounter Summary ---
Author Organization [employer] Address [address] [facility] [address] [place] [address] Care Team Providers Care Manager E Commerce Name Role Phone Sandhya Darby MD Primary Care Provider + Raza Coto PharmD Unavailable [phone] Encounter Details Date Type Department Care Team (Late st Contact Info) Description 08/07/2024 Telephone [facility] [address] [place], [place] [phone] Bharathi, Louisa, OD [address] [place] [address] Social History Tobacco Use Types Packs/Day Years [...] Description 08/27/2024 10:00 AM EDT Clinical Support [facility] [address] [place] [address] 10/08/2024 9:45 AM EDT Office Visit [facility] [address] [place] [address] Sandhya Darby MD [address] [place] [address] 12/02/2024 9:30 AM EDT Office Visit [facility] [address] [place] [address] Louisa Garvin, OD [address] [place] [address] documented as of this encounter Goals Goal Patient Goal Type Associated Problems Recent Progress Patient-Stated? Author Blood Pressure < 140/90 Blood Pressure 142/82( 025 11:38 AM EDT) No Raza Coto, Sebas documented as of this encounter Visit Diagnoses Not on filedocumented in this encounter Care Teams Manager E Commerce Relationship Specialty Start Date End Date Sandhya Darby MD [address] [place] [phone] PCP - General Family Medicine 02/12/19 Raza Coto, StephanieD [address] [place] [phone] Pharmacist Internal Medicine 01/28/23 documented as of this encounter
--- OUTSIDE RECORDS SUMMARY | 2024-08-12 14:02 | XMS_ITS | Encounter Summary ---
Author Organization [employer] Address [address] [facility] 7t [place] [address] Care Team Providers Care Oiler Bander Name Role Phone Sandhya Darby MD Primary Care Provider + Raza Coto PharmD Unavailable [phone] Reason for Visit * Reason Onset Date Comments Nurse Triage 08/12/2024 Encounter Details Date Type Department Care Team ([facility] st Contact Info) Description 08/12/2024 Telephone [facility] MEDICINE [address] [place], [place] [phone] Sandhya Darby MD [address] [place], [place] [phone] Nurse Triage Social History Tobacco Use Types Packs/Day Years [...] encounter Miscellaneous Notes * Telephone Encounter - Quynh Huang LPN - 08/12/2024 8:54 AM EDT Individual Eligibility Response for: Active Coverage OSWALD BERTRAND : 1990 Insured ID: [id number] Plan Begin Date: 08/04/2024 Triage call to patient. Has new [employer] Insurance but has not gotten card yet. Patient with increased difficulty breathing yesterday when at work has done neb treatments and inhaler with no noted improvement. Has no congestion or fever just increased chest tightness with noted SOB. Has noted wheezing. Disposition reviewed and patient in agreement with plan. ASK/Roslyn [id number]. Protocol Used: Asthma Attack (Adult) Protocol-Based Disposition: See in Office or Video Visit Today Video visit not offered Positive Triage Questions: * Continuous (nonstop) coughing that keeps patient from working or sleeping, and not improved after2 or 3 inhaler or nebulizer treatments given 20 minutes apart * Patient wants to be seen * All higher-acuity triage questions were negative Care Advice Discussed: * Asthma Attack * Avoid Asthma Triggers * Reasons To Call Back - An asthma attack is not better after 2 or 3 quick-relief treatments (such as albuterol by inhaleror nebulizer) 20 minutes apart. - Quick-relief asthma medicine (such as albuterol by inhaler or nebulizer) is needed more often than every 4 hours - Mild asthma symptoms not better after 24 hours - Mild wheezing or other asthma symptoms come and go for more than 3 days - You become worse * Telephone Encounter - Nellie Mckeon - 08/12/2024 8:47 AM EDT Symptom: Breathing Trouble Outcome: Schedule an urgent appointment (within 1 hour) or talk to a nurse or provider soon Reason: Caller denied all higher acuity questions The caller accepted this outcome. [phone] documented in this encounter Plan of Treatment Upcoming Encounters Date Type Department Care Team (Late st Contact Info) Description 08/27/2024 10:00 AM EDT Clinical Support [facility] MED[facility] [address] [place] [address] 10/08/2024 9:45 AM EDT Office Visit [facility] [address] [place] [address] Sandhya Darby MD [address] [place] [address] 12/02/2024 9:30 AM EDT Office Visit [facility] OPTOMETRY [address] [place] [address] Louisa Garvin, OD [address] [place] [address] documented as of this encounter Goals Goal Patient Goal Type Associated Problems Recent Progress Patient-Stated? Author Blood Pressure < 140/90 Blood Pressure 142/82( 025 11:38 AM EDT) No Raza Coto, Sebas documented as of this encounter Visit Diagnoses Not on filedocumented in this encounter Care Teams Oiler Bander Relationship Specialty Start Date End Date Sandhya Darby MD [address] [place] [id number] PCP - General Family Medicine 02/12/19 Raza Coto, Sebas [address] [place] [phone] Pharmacist Internal Medicine 01/28/23 documented as of this encounter
--- OUTSIDE RECORDS SUMMARY | 2024-08-12 14:02 | XMS_ITS | Encounter Summary ---
Author Organization [email or web address] Address [address] [facility] 7t [place] [address] Care Team Providers Care Loading Unit Operator Name Role Phone Sandhya Darby MD Primary Care Provider + Raza Coto PharmD Unavailable [phone] Reason for Visit * Reason Onset Date Comments Nurse Triage 12/23/2023 Encounter Details Date Type Department Care Team ([facility] st Contact Info) Description 12/23/2023 Telephone [facility] MEDICINE [address] [place], [place] [phone] Sandhya Darby MD [address] [place], [place] [phone] Nurse Triage Social History Tobacco Use Types [...] encounter Miscellaneous Notes * Telephone Encounter - Suzette Garza RN - 12/23/2023 1:01 PM EDT Triage call Pt reports cough with clear phlegm produced, nasal congestion, headache, chills/fever, Pt was neg for Covid with home test. Pt does have some difficulty breathing at times but, reports asthma has been flaring. Pt has taken excedrin for headache without effect. BP this morning is 140/100and reports taking medication. Pt reports all these symptoms started 12/20/23 while at work. Pt reports drinking adequate liquids. Pt is calling for excuse for work and to be checked for flu/covid . Pt is advised to come to [facility] today open till 800pm and Pt agrees with disposition. Pt reports insurance is medicaid [facility] and has spoken with office in regards to being sure insurance is active. Protocol Used: Cough (Adult) Protocol-Based Disposition: See in Office or Video Visit Today or Tomorrow Video visit not offered Positive Triage Questions: * Continuous (nonstop) coughing interferes with work or school and no improvement using cough treatment per Care Advice * Patient wants to be seen * All higher-acuity triage questions were negative Care Advice Discussed: * Reassurance and Education - Cough * Cough Medicines * Coughing Spells * Prevent Dehydration * Humidifier * Reasons To Call Back - Difficulty breathing - Cough lasts more than 3 weeks - Fever lasts more than 3 days - You become worse * Telephone Encounter - Alysha Tay - 12/23/2023 12:43 PM EDT Symptoms: Cough, Chills, Runny Nose, Headache Outcome: Schedule a same-day appointment or talk to a nurse or provider today Reason: Caller denied all higher acuity questions The caller accepted this outcome documented in this encounter Plan of Treatment Upcoming Encounters Date Type Department Care Team (Late st Contact Info) Description 08/27/2024 10:00 AM EDT Clinical Support [facility] MEDICINE [address] [place] [address] 10/08/2024 9:45 AM EDT Office Visit [facility] MEDICINE [address] [place] [address] Sandhya Darby MD [address] [place] [address] 12/02/2024 9:30 AM EDT Office Visit [facility] OPTOMETRY [address] [place] [address] Bharathi, Louisa, OD [address] [place] [address] documented as of this encounter Goals Goal Patient Goal Type Associated Problems Recent Progress Patient-Stated? Author Blood Pressure < 140/90 Blood Pressure 142/82( 025 11:38 AM EDT) No Raza Coto, PharmPatience documented as of this encounter Visit Diagnoses Not on filedocumented in this encounter Care Teams Loading Unit Operator Relationship Specialty Start Date End Date Sandhya Darby MD [address] [place] [id number] PCP - General Family Medicine 02/12/19 Raza Coto, Sebas [address] [place] [phone] Pharmacist Internal Medicine 01/28/23 documented as of this encounter
--- OUTSIDE RECORDS SUMMARY | 2024-08-12 14:02 | XMS_ITS | Encounter Summary ---
Author Organization [employer] Address [address] [facility] 7t [place] [address] Care Team Providers Care County Agricultural Agent Name Role Phone Sandhya Darby MD Primary Care Provider + Raza Coto PharmD Unavailable [phone] Encounter Details Date Type Department Care Team (Latest Contact Info) Description 08/12/2024 Travel Social History Tobacco Use Types Packs/Day Years [...] Description 08/27/2024 10:00 AM EDT Clinical Support [facility] MEDICINE [address] [place] [address] 10/08/2024 9:45 AM EDT Office Visit [facility] MEDICINE [address] [place] [address] Sandhya Darby MD 230 [place] [address] 12/02/2024 9:30 AM EDT Office Visit [facility] OPTOMETRY [address] [place] [address] Louisa Garvin, OD [address] [place] [address] documented as of this encounter Goals Goal Patient Goal Type Associated Problems Recent Progress Patient-Stated? Author Blood Pressure < 140/90 Blood Pressure 142/82( 025 11:38 AM EDT) No Raza Coto, Sebas documented as of this encounter Visit Diagnoses Not on filedocumented in this encounter Care Teams County Agricultural Agent Relationship Specialty Start Date End Date Sandhya Darby MD [address] [place] [phone] PCP - General Family Medicine 02/12/19 Raza Coto PharmD [address] [place] [phone] Pharmacist Internal Medicine 01/28/23 documented as of this encounter
--- OUTSIDE RECORDS SUMMARY | 2024-08-12 14:02 | XMS_ITS | Encounter Summary ---
Author Organization [employer] Address [address] [facility] 7 [place] [address] Care Team Providers Care General Labor Name Role Phone Sandhya Darby MD Primary Care Provider + Raza Coto PharmD Unavailable [phone] Reason for Referral * Consultation (Routine) - Pending Review Specialty Diagnoses / Procedures Referred By Олег upton Referred To Contact Pulmonary Disease Diagnoses Mild intermittent asthma with acute exacerbation Estella Cuevas NP [address] [place] [address] Phone: tel: fax: Referral ID Status Reason Start Date Expiration Date Visits Requested Visits Authorized [id number] Pending Review Specialty Services Required 08/12/2024 08/12/2025 1 1 Reason for Visit * Reason Comments sick onsite Encounter Details Date Type Department Care Team (Late st Contact Info) Description 08/12/2024 10:30 AM EDT Office Visit [facility] MEDICINE [address] [place] [address] Estella Cuevas NP [address] [place], [place] [phone] Mild intermittent asthma with acute exacerbation (Primary Dx); Elevated blood pressure reading with diagnosis of hypertension; Anaphylaxis, sequela Social History Tobacco Use Types Packs/Day Years [...] AM EDT documented as of this encounter Last Filed Vital Signs Vital Sign Reading [...] Mass Index 25.61 08/12/2024 10:59 AM EDT documented in this encounter Progress Notes * Estella Cuevas NP - 08/12/2024 10:30 AM EDT SUBJECTIVE: Wilian Tomas is a 34 y.o. male presents for sick visit. Complains of breathing difficulty HPI: Wilian reports chest tightness, difficulty breathing, intermittent wheezing, and persistent cough with slight mucus production that started 1 day ago. Denies fever, chills, runny nose. Has history of asthma for which he was receiving Xolair injections but has not had medical care in over 1 year. States he is out of all his respiratory inhalers. He's noted to have elevated BP reading as well. Reports home readings ranging 160/88-175/90 associated with headache at times. He has not taken BP meds in about a year. Review of Systems Constitutional: Negative. Negative for chills and fever. HENT: Negative. Negative for congestion and sore throat. Eyes: Negative for discharge. Respiratory: Positive for cough, chest tightness, shortness of breath and wheezing. Cardiovascular: Negative for chest pain and palpitations. Gastrointestinal: Negative. Negative for abdominal pain, constipation, diarrhea and nausea. Genitourinary: Negative. Negative for difficulty urinating. Musculoskeletal: Negative. Negative for arthralgias and myalgias. Skin: Negative for rash. Neurological: Negative. Negative for dizziness, speech difficulty, light- headedness and headaches. Hematological: Negative. Psychiatric/Behavioral: Negative for behavioral problems, self-injury and suicidal ideas. The patient is not nervous/anxious. OBJECTIVE: Vitals: 08/12/24 1059 08/12/24 1138 BP: (!) 160/95 (!) 142/82 BP Location: Left arm Left arm Patient Position: Sitting Sitting BP Cuff Size: Large adult Adult Pulse: 83 Resp: 20 Temp: 98.2 ??F (36.8 ??C) TempSrc: Oral SpO2: 98% Weight: 149 lb 3.2 oz (67.7 kg) Height: 5' 4 (1.626 m) Patient Active Problem List Diagnosis Acute otitis externa of right ear Atypical chest pain Elevated blood pressure reading Essential hypertension Increased abdominal girth Left sided abdominal pain Moderate persistent asthma with exacerbation Moderate persistent asthma Recurrent major depression in partial remission (CMS/HCC) Superficial varicosities Weight gain Mild intermittent asthma with acute exacerbation Chronic pain of right knee Allergic rhinitis, seasonal Anaphylactic reaction due to peanuts Anxiety Helicobacter positive gastritis Insomnia due to anxiety and fear Encounter for preventive health examination Acute URI Strep pharyngitis Moderate asthma with exacerbation Current Outpatient Medications: albuterol (2.5 MG/3ML) 0.083% nebulizer solution, Take 3 mL (2.5 mg) by nebulization every 6 (six) hours if needed for wheezing or shortness of breath., Disp: 75 mL, Rfl: 1 bismuth subsalicylate (Pepto-Bismol) 262 MG chewable tablet, 1 tab po tid prn abd pain, Disp: , Rfl: cetirizine (ZyrTEC) 10 MG tablet, Take 1 tablet (10 mg) by mouth Once per day., Disp: 30 tablet, Rfl: 0 EPINEPHrine (EpiPen 2-Alejo) 0.3 MG/0.3ML injection syringe, Inject 0.3 mL (0.3 mg) as directed 1 (one) time for 1 dose. Inject into upper leg. Call 911 after use., Disp: 0.3 mL, Rfl: 0 escitalopram (Lexapro) 20 MG tablet, TAKE 1 TABLET BY MOUTH EVERY MORNING, Disp: , Rfl: fluticasone (Flonase) 50 MCG/ACT nasal spray, Administer 1 spray into each nostril Once per day., Disp: 16 g, Rfl: 0 Fluticasone-Salmeterol (Advair Diskus) 250-50 MCG/ACT aerosol powder , Inhale 1 puff 2 times daily., Disp: 1 each, Rfl: 1 LORazepam (Ativan) 0.5 MG tablet, TAKE 1 TABLET BY MOUTH TWICE DAILY NEEDED, Disp: , Rfl: losartan (Cozaar) 25 MG tablet, Take 1 tablet (25 mg) by mouth Once per day., Disp: 30 tablet, Rfl:1 naloxone (Narcan) 4 mg/0.1 mL nasal spray, USE DIRECTED FOR OPIOD OVERDOSE AND CALL 911, Disp: ,Rfl: omalizumab (Xolair) 75 MG/0.5ML injection, inject (75MG) by subcutaneous route every 4 weeks, Disp:, Rfl: ProAir HFA 108 (90 Base) MCG/ACT inhaler, Inhale 2 puffs every 4 (four) hours if needed for wheezing or shortness of breath., Disp: 18 g, Rfl: 1 QUEtiapine (SEROquel) 50 MG tablet, TAKE 1 TABLET BY MOUTH TWICE DAILY, Disp: , Rfl: V-R ACID REAL ESTATE CONSULTANT 10 MG tablet, TAKE 1 TABLET BY MOUTH TWICE DAILY NEEDED, Disp: 90 tablet, Rfl: 0 zolpidem (Ambien) 10 MG tablet, TAKE 1 TABLET BY MOUTH DAILY AT BEDTIME, Disp: , Rfl: Physical Exam Vitals reviewed. Constitutional: General: He is not in acute distress. Appearance: Normal appearance. He is not ill-appearing. HENT: Head: Normocephalic and atraumatic. Right Ear: External ear normal. Left Ear: External ear normal. Nose: Nose normal. Eyes: General: No scleral icterus. Extraocular Movements: Extraocular movements intact. Cardiovascular: Rate and Rhythm: Normal rate and regular rhythm. Pulses: Normal pulses. Heart sounds: Normal heart sounds. Pulmonary: Effort: Pulmonary effort is normal. No respiratory distress. Breath sounds: Normal breath sounds. Musculoskeletal: General: Normal range of motion. Cervical back: Normal range of motion. Skin: General: Skin is warm and dry. Neurological: General: No focal deficit present. Mental Status: He is alert and oriented to person, place, and time. Gait: Gait normal. Psychiatric: Mood and Affect: Mood normal. Behavior: Behavior normal. Current Outpatient Medications Medication Sig Dispense Refill albuterol (2.5 MG/3ML) 0.083% nebulizer solution Take 3 mL (2.5 mg) by nebulization every 6 (six) hours if needed for wheezing or shortness of breath. 75 mL 1 bismuth subsalicylate (Pepto-Bismol) 262 MG chewable tablet 1 tab po tid prn abd pain cetirizine (ZyrTEC) 10 MG tablet Take 1 tablet (10 mg) by mouth Once per day. 30 tablet 0 EPINEPHrine (EpiPen 2-Alejo) 0.3 MG/0.3ML injection syringe Inject 0.3 mL (0.3 mg) as directed 1 (one) time for 1 dose. Inject into upper leg. Call 911 after use. 0.3 mL 0 escitalopram (Lexapro) 20 MG tablet TAKE 1 TABLET BY MOUTH EVERY MORNING fluticasone (Flonase) 50 MCG/ACT nasal spray Administer 1 spray into each nostril Once per day. 16 g 0 Fluticasone-Salmeterol (Advair Diskus) 250-50 MCG/ACT aerosol powder Inhale 1 puff 2 times daily. 1each 1 LORazepam (Ativan) 0.5 MG tablet TAKE 1 TABLET BY MOUTH TWICE DAILY NEEDED losartan (Cozaar) 25 MG tablet Take 1 tablet (25 mg) by mouth Once per day. 30 tablet 1 naloxone (Narcan) 4 mg/0.1 mL nasal spray USE DIRECTED FOR OPIOD OVERDOSE AND CALL 911 omalizumab (Xolair) 75 MG/0.5ML injection inject (75MG) by subcutaneous route every 4 weeks ProAir HFA 108 (90 Base) MCG/ACT inhaler Inhale 2 puffs every 4 (four) hours if needed for wheezingor shortness of breath. 18 g 1 QUEtiapine (SEROquel) 50 MG tablet TAKE 1 TABLET BY MOUTH TWICE DAILY V-R ACID REAL ESTATE CONSULTANT 10 MG tablet TAKE 1 TABLET BY MOUTH TWICE DAILY NEEDED 90 tablet 0 zolpidem (Ambien) 10 MG tablet TAKE 1 TABLET BY MOUTH DAILY AT BEDTIME No current facility-administered medications for this visit. Assessment/Plan Diagnoses and all orders for this visit: Mild intermittent asthma with acute exacerbation Comments: -LS clear on auscultation; no indication for prednisone -refilled rescue and maintenance inhalers and neb solution -ED precautions reviewed -referral to pulmonology Orders: - Fluticasone-Salmeterol (Advair Diskus) 250-50 MCG/ACT aerosol powder ; Inhale 1 puff 2 times daily. - ProAir HFA 108 (90 Base) MCG/ACT inhaler; Inhale 2 puffs every 4 (four) hours if needed for wheezing or shortness of breath. - albuterol (2.5 MG/3ML) 0.083% nebulizer solution; Take 3 mL (2.5 mg) by nebulization every 6 (six) hours if needed for wheezing or shortness of breath. - Referral to Pulmonology; Future Elevated blood pressure reading with diagnosis of hypertension Comments: -restarted BP control agent -BMP ordered today to evaluate kidney fx -lifestyle and dietary changes discussed -continue home monitoring; log provided -ED precautions reviewed -f/u 1 week with team nurses and repeat BMP -scheduled physical with PCP Orders: - Basic Metabolic Panel; Future - losartan (Cozaar) 25 MG tablet; Take 1 tablet (25 mg) by mouth Once per day. - Basic Metabolic Panel; Future Anaphylaxis, sequela Comments: -refill of epipen provided for peanut allergy Orders: - EPINEPHrine (EpiPen 2-Alejo) 0.3 MG/0.3ML injection syringe; Inject 0.3 mL (0.3 mg) as directed 1 (one) time for 1 dose. Inject into upper leg. Call 911 after use. documented in this encounter Plan of Treatment Upcoming Encounters Date Type Department Care Team (Late st Contact Info) Description 08/27/2024 10:00 AM EDT Clinical Support [facility] MEDICINE [address] [place] [address] 10/08/2024 9:45 AM EDT Office Visit [facility] MED[facility] [address] [place] [address] Sandhya Darby MD 230 [place] [address] 12/02/2024 9:30 AM EDT Office Visit [facility] OPTOMETRY [address] [place] [address] Louisa Garvin, OD [address] [place] [address] Scheduled Orders Name Type Priority Associated Diagnoses Orde r Schedule Basic Metabolic Panel Lab Routine Elevated blood pressure reading with diagnosis of hypertension Expected: 08/12/2024 (Approximate), Expires: 08/12/2025 Basic Metabolic Panel Lab Routine Elevated blood pressure reading with diagnosis of hypertension Expected: 08/26/2024 (Approximate), Expires: 08/12/2025 Scheduled Referrals Name Type Priority Associated Diagnoses Orde r Schedule Referral to Pulmonology Outpatient Referral Routine Mild intermittent asthma with acute exacerbation Expected: 08/12/2024 (Approximate), Expires: 08/12/2025 documented as of this encounter Goals Goal Patient Goal Type Associated Problems Recent Progress Patient-Stated? Author Blood Pressure < 140/90 Blood Pressure 142/82( 025 11:38 AM EDT) Raza Ny, PharmD documented as of this encounter Visit Diagnoses Diagnosis Mild intermittent asthma with acute exacerbation- Primary Elevated blood pressure reading with diagnosis of hypertension Anaphylaxis, sequela documented in this encounter Care Teams General Labor Relationship Specialty Start Date End Date Sandhya Darby MD [address] [place] [address] PCP - General Family Medicine 02/12/19 Raza Coto, PharmD [address] [place] [address] Pharmacist Internal Medicine 01/28/23 documented as of this encounter
--- OUTSIDE RECORDS SUMMARY | 2024-08-12 14:02 | XMS_ITS | Encounter Summary ---
Author Organization [employer] Address [address] [place] [address] 7 [place] [address] Care Team Providers Care Combination Operator Name Role Phone Sandhya Darby MD Primary Care Provider + Raza Coto PharmD Unavailable [phone] Encounter Details Date Type Department Care Team (Latest Contact Info) Description 03/24/2021 Abstract [facility] CONVERSIONS Dental, Provider, DDS Social History Tobacco Use Types Packs/Day Years Used Date Smoking Tobacco: Never Assessed Sex and Gender Information Value Date Recorded [...] Description 08/27/2024 10:00 AM EDT Clinical Support [facility] MEDICINE [address] [place] [address] 10/08/2024 9:45 AM EDT Office Visit [facility] MEDICINE [address] [place] [address] Sandhya Darby MD [address] [place] [address] 12/02/2024 9:30 AM EDT Office Visit [facility] OPTOMETRY [address] [place] [address] Louisa Garvin, OD [address] [place] [address] documented as of this encounter Visit Diagnoses Not on filedocumented in this encounter Care Teams Combination Operator Relationship Specialty Start Date End Date Sandhya Darby MD [address] [place] [phone] PCP - General Family Medicine 02/12/19 Raza Coto, StephanieD [address] [place] [phone] Pharmacist Internal Medicine 01/28/23 documented as of this encounter
[2024-08-12 16:35] LABS: Anion Gap 12 (12-20); Blood Urea Nitrogen 14 mg/dL (9-16); Calcium 9.1 mg/dL (8.4-10.2); Carbon Dioxide 26 mmol/L (22-29); Chloride 106 mmol/L (96-108); Estimated Glomerular Filt Rate > 60; Glucose Random 78 mg/dL (60-115); Potassium 3.5 mmol/L (3.3-5.1); Sodium 140 mmol/L (135-145)
== END 2024-08-12 11:54 | disposition home or self-care (01) ==
LOC: HO.HHCL 11:53
PROVIDERS: Visit Provider Nurse Practitioner
DX: I10 Essential (primary) hypertension (principal)
CPT/HCPCS: 36415; 80048